=== PATIENT | male | born 1940 | race Caucasian/White ===

== ENCOUNTER → 2017-10-16 08:35 | Outpatient (POV) | payer MEDICARE, SELFPAY | PROVIDERS: Visit Provider Dermatology | DX: Z00.00 Encounter for general adult medical examination without abnormal findings (principal) ==

== ENCOUNTER → 2018-11-11 09:33 | Outpatient (CLI) | payer MEDICARE, SELFPAY ==
--- NOTE | 2018-11-11 09:36 | CA_ITS ---
PROCEDURE: 2-D M-mode and color Doppler study INDICATIONS FOR THE TEST: Chest pain COPD+ Heart Murmur Tobacco Smoking+ Palpitations Fatigue Syncope Edema Hypertension+Diabetes Mellitus Rheumatic Fever SOB+FELIX Obesity Hyperlipidemia+ Family History HD Additional History cabg,stents,aaa,pad,ruddy PATIENT INFORMATION HEIGHT: 66 WEIGHT:139 GENDER: Male B/P:161/70 2-D/M-MODE INTERPRETATION: 2-D MEASUREMENTS OBSERVED VALUES IN CMS Right Ventricular Dimension (RVDd) 1.7 Interventricular Septum (Thickness)(IVsd) 1.3 Left Ventricular Internal Dimensions(LVIDd) 4.4 Left Ventricular Posterior Wall (Thickness)(LVPWd) 1.1 Aortic Root 2.2 Aortic Cusp Separation 1.2 Left Atrial Dimensions (LAD) 3.9 2D 1. Left atrium is mildly enlarged, left ventricle is normal size, mild concentric left ventricular hypertrophy, visually estimated ejection fraction 55% with no regional wall motion abnormality. 2. The right atrium and right ventricle are normal size and contractility. 3. The aortic valve is thickened and calcified leaflet continue to display mobility. 4. The mitral and tricuspid valve leaflets are minimally thickened. 5. The pulmonic valve is poorly visualized. 6. No significant pericardial effusion noted. DOPPLER INTERROGATION: Doppler interrogation of the aortic, mitral and tricuspid valvular presence of mild mitral and moderate tricuspid regurgitation, tricuspid regurgitation jet velocity is inadequate for calculation of the right ventricular systolic pressure, grade 2 diastolic dysfunction seen without tissue Doppler evidence of raised left atrial pressure. CONCLUSION: 1. Mildly enlarged left atrium, normal left ventricular size, mild concentric left ventricular hypertrophy, visually estimated ejection fraction 55% with no regional wall motion abnormality, grade 2 diastolic dysfunction seen. 2. Thickened and calcified aortic valve without Doppler evidence of aortic stenosis aortic insufficiency. 3. Mild mitral and tricuspid regurgitation 4. No significant pericardial effusion noted.
== END ==
PROVIDERS: PCP Family Medicine; Visit Provider Internal Medicine
DX: F17.200 Nicotine dependence, unspecified, uncomplicated; I11.9 Hypertensive heart disease without heart failure; I25.10 Atherosclerotic heart disease of native coronary artery without angina pectoris; I65.23 Occlusion and stenosis of bilateral carotid arteries; I71.4 Abdominal aortic aneurysm, without rupture; I73.9 Peripheral vascular disease, unspecified; I77.72 Dissection of iliac artery; J43.8 Other emphysema; N18.2 Chronic kidney disease, stage 2 (mild); R00.1 Bradycardia, unspecified; E78.49 Other hyperlipidemia
CPT/HCPCS: 93306

== ENCOUNTER → 2020-03-02 08:58 | Outpatient (CLI) | payer MEDICARE, SELFPAY ==
--- NOTE | 2020-03-02 09:16 | MR_ITS ---
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 FINDINGS: No midline shift, mass effect, intracranial hemorrhage, or hydrocephalus is evident. There is mild generalized atrophy with nonspecific periventricular and subcortical T2 white matter hyperintensities consistent with ischemic gliotic change from microvascular disease. There are old bilateral lacunar infarctions of the basal ganglia. No evidence of acute infarction. No enhancing lesions are evident. There is soft tissue defect in the right temporal region which extends to the outer table of the skull and is somewhat more diffuse and less deep posterior to this area. The cranium itself has an unremarkable appearance. No evidence of any invasive process into the skull or subdural region. No pituitary mass. The optic chiasm, corpus callosum, and craniocervical junction have an unremarkable appearance. There is some increased T2 signal along the inferior aspect of the pituitary gland. This is of questionable clinical significance. No mastoid effusion or sinus air-fluid level. IMPRESSION: 1. No acute intracranial findings. 2. Soft tissue defect in the right frontal temporal area and right temporal region which extends to the external table of the skull without skull lesion. Dictated by: Tano Masterson MD 03/03/2020 13:28 Electronically signed by Tano Masterson MD in [place] 03/03/2020 13:28
[2020-03-02 09:19] LABS: Blood Urea Nitrogen 17 mg/dl (9-20); Estimated Glomerular Filt Rate 45 ml/min (>60); GFR (African American) 54 ML/MIN (>60)
== END ==
PROVIDERS: PCP Family Medicine; Visit Provider Family Medicine
DX: C76.0 Malignant neoplasm of head, face and neck (principal)
CPT/HCPCS: 36415; 70553; 82565; 84520

== ENCOUNTER → 2020-05-12 10:08 | Outpatient (CLI) | payer MEDICARE, SELFPAY ==
[2020-05-14 00:24] LABS: Covid-19 Nasal PCR Sendout Lex NOT DETECTED
== END ==
PROVIDERS: Visit Provider Family Medicine
DX: Z03.818 Encounter for observation for suspected exposure to other biological agents ruled out (principal)
CPT/HCPCS: U0004

== ENCOUNTER → 2022-03-23 08:52 | Outpatient (CLI) | payer MEDICARE, SELFPAY ==
[2022-03-22 18:16] LABS: MANUAL DIFFERENTIAL MANUAL DIFFERENTIAL (MANUAL DIFF)
[2022-03-22 18:21] LABS: Basophils # 0.1 K/mm3 (0-0.2); Basophils % 0.8 % (0.1-2.0); Eosinophils # 0.6 K/mm3 (0.0-0.4); Eosinophils % 7.2 % (0.1-12.0); Hematocrit 35.4 % (42.0-52.0); Hemoglobin 10.7 g/dL (14.1-18.0); Lymphocytes # 2.8 K/mm3 (0.7-4.5); Lymphocytes % 36.1 % (10-50); Mean Corpuscular HGB Conc 30.3 g/dL (31.8-35.4); Mean Corpuscular Hemoglobin 28.9 pg (27.0-31.2); Mean Corpuscular Volume 95.4 fl (80-94); Mean Platelet Volume 9.4 fl (7.4-10.4); Monocytes # 0.4 K/mm3 (0.1-1.0); Monocytes % 5.6 % (1.7-9.3); Neutrophils % 50.3 % (37.0-80.0); Platelet Count 198 K/mm3 (142-424); Red Blood Count 3.71 M/mm3 (4.60-6.20); Red Cell Distribution Width 17.1 % (11.5-17.5); White Blood Count 7.9 K/mm3 (4.8-10.8)
[2022-03-22 18:23] LABS: Chloride 102 mmol/L (98-107); Potassium 4.7 mmoL/L (3.5-5.1); Sodium 136 mmol/L (136-145)
[2022-03-22 18:25] LABS: Blood Urea Nitrogen 18 mg/dl (9-20); Estimated Glomerular Filt Rate 41 ml/min (>60); GFR (African American) 50 ML/MIN (>60)
[2022-03-22 18:26] LABS: Alanine Aminotransferase 9 U/L (12-78); Albumin Level 3.9 g/dl (3.5-5.0); Albumin/Globulin Ratio 1.3 (1.1-1.8); Alkaline Phosphatase 120 U/L (38-126); Anion Gap 9.7 mEq/L (5-15); Aspartate Amino Transferase 20 U/L (17-59); Bilirubin,Total 0.4 mg/dl (0.2-1.3); Carbon Dioxide 29 mmol/L (22.0-30.0); Globulin 2.9 g/dL (1.3-3.2); Glucose 98 mg/dl (74-100); Total Protein,Serum 6.8 g/dl (6.3-8.2)
[2022-03-22 20:24] LABS: Anisocytosis 2+; Eosinophils % 6 % (0-3); Hypochromasia 2+; Lymphocytes % 35 % (10-50); Monocytes % 2 % (2-9); Neutrophils % 55 % (42-76); Platelet Estimate Normal; Poikilocytosis 1+; Total Cells Counted 100
== END ==
PROVIDERS: PCP Family Medicine; Visit Provider Family Medicine
DX: Z86.2 Personal history of diseases of the blood and blood-forming organs and certain disorders involving the immune mechanism (principal); I25.10 Atherosclerotic heart disease of native coronary artery without angina pectoris
CPT/HCPCS: 80053; 85007; 85014; 85018; 85048; 85049

== ENCOUNTER → 2022-06-22 08:17 | Outpatient (CLI) | payer MEDICARE, SELFPAY ==
[2022-06-21 19:47] LABS: Alanine Aminotransferase 8 U/L (12-78); Albumin Level 3.8 g/dl (3.5-5.0); Albumin/Globulin Ratio 1.3 (1.1-1.8); Alkaline Phosphatase 131 U/L (38-126); Anion Gap 16.8 mEq/L (5-15); Aspartate Amino Transferase 18 U/L (17-59); Bilirubin,Total 0.2 mg/dl (0.2-1.3); Blood Urea Nitrogen 21 mg/dl (9-20); Calcium 8.5 mg/dl (8.4-10.2); Carbon Dioxide 28 mmol/L (22.0-30.0); Chloride 99 mmol/L (98-107); Estimated Glomerular Filt Rate 41 ml/min (>60); GFR (African American) 50 ML/MIN (>60); Globulin 2.9 g/dL (1.3-3.2); Glucose 84 mg/dl (74-100); Potassium 4.8 mmoL/L (3.5-5.1); Sodium 139 mmol/L (136-145); Total Protein,Serum 6.7 g/dl (6.3-8.2)
[2022-06-21 20:17] LABS: Thyroid Stimulating Hormone 2.55 uIU/mL (0.465-4.68)
== END ==
PROVIDERS: PCP Family Medicine; Visit Provider Family Medicine
DX: R06.00 Dyspnea, unspecified (principal); I11.9 Hypertensive heart disease without heart failure
CPT/HCPCS: 80053; 84443

== ENCOUNTER → 2022-06-24 08:13 | Outpatient (CLI) | payer MEDICARE, SELFPAY ==
--- NOTE | 2022-06-24 | CA_ITS ---
APPROVED REPORT EXAM: Comprehensive 2D, Doppler, and color-flow Echocardiogram Camp Manager: Faith Martin CRT Ht: 5 ft 6 in Wt: 138lbs BSA: 1.71 BP: 130/62 mmHg Indications: COPD, Shortness of Breath, Hyperlipidemia, Hypertension/HDD, CABG x5, stents x 2, smoker 2D Dimensions LVOT 1.78 cm (M/F) 1.5-2.5 LA Volume 36.40 mL LA Volume Index 21.30 mL/m2 (M/F) 16-34 M-Mode Dimensions RVDd 2.67 cm (0.9-2.6) LA Diam 3.59 cm (1.9-4.0) LVDd 4.27 cm (3.5-5.7) Ao Diam 3.86 cm (2.0-3.7) LVDs 3.13 cm (3.5-5.7) IVSd 0.99 cm (0.6-1.1) PWd 0.87 cm (0.6-1.1) EF (Teich) 52.50% FS 26.70% EDV (Teich) 81.70 mL TAPSE 1.60 (<1.7) ESV (Teich) 38.80 mL LV Diastology E Decel Time 190.00 (160-240 msec) E/A Ratio 0.88 MED E' 6.60 (< 7 cm/sec) MED A' 10.80 cm/s E'/MED E' Ratio 13.02 (>14) LAT E' 9.80 (<10 cm/sec) LAT A' 10.20 cm/s E/LAT E' Ratio 8.77 (>14) Aortic Valve LVOT Max 171.00 (70-110 cm/s) LVOT VTI 37.21 cm AoV Peak Julio Cesar. 199.00 (50-130 cm/s) AI PHT 451.00 ms AO Peak GR. 16.00 mmHg AO Mean GR. 8.20 (<5 mmHg) AO VTI 44.63 (18-25 cm) TIERRA (VTI) 2.07 (2.5-4.5 cm2) Mitral Valve MV A Velocity 97.00 (40-130 cm/s) E/A Ratio 0.88 MV Decel. Time 190.00 (160-240 ms) Pulmonary Valve PV Peak Velocity 141.00 (50-150 cm/s) Tricuspid Valve TR P. Velocity 203.00 cm/s RAP Estimate 10.00 mmHg RVSP 26.50 mmHg Left Ventricle Left atrium is mildly enlarged, left ventricle is normal size, mild concentric left ventricular hypertrophy, estimated ejection fraction 55% with no regional wall motion abnormality, grade 1 diastolic dysfunction seen without tissue Doppler evidence of raise left atrial pressure. Right Ventricle Right atrium and right ventricle are normal size and contractility. Aortic Valve Aortic valve is minimally thickened and fibrosed there is no aortic stenosis, there is trace aortic insufficiency. Mitral Valve Mitral valve grossly normal, there is trace mitral regurgitation. Tricuspid Valve Tricuspid valve grossly normal, there is trace tricuspid regurgitation, tricuspid regurgitation request is inadequate for calculation of the right ventricular systolic pressure. Pulmonic Valve Pulmonic valve is poorly visualized. Great Vessels Aortic root is normal size. Inferior vena cava is poorly visualized. Pericardium No significant pericardial effusion noted. Conclusion 1. Mildly enlarged left atrium, normal left ventricular size, mild concentric left ventricular hypertrophy, estimated ejection fraction 55% with no regional wall motion abnormality, grade 1 diastolic dysfunction seen without tissue Doppler evidence of raise left atrial pressure. 2. Trace aortic, mitral and tricuspid regurgitation. 3. No significant pericardial effusion noted. 4. Inferior vena cava is poorly visualized Electronically signed by : Andres Eubanks MD 06/25/2022 06:26:48
== END ==
PROVIDERS: PCP Family Medicine; Visit Provider Nurse Practitioner Family
DX: R06.02 Shortness of breath (principal)
CPT/HCPCS: 93306

== ENCOUNTER → 2022-10-08 11:20 | Outpatient (CLI) | payer MEDICARE, SELFPAY ==
[2022-10-08 19:04] LABS: Basophils % 0.3 % (0.1-2.0); Eosinophils # 0.5 K/mm3 (0.0-0.4); Eosinophils % 6.3 % (0.1-12.0); Hematocrit 33.5 % (42.0-52.0); Hemoglobin 10.4 g/dL (14.1-18.0); Lymphocytes # 2.7 K/mm3 (0.7-4.5); Lymphocytes % 35.1 % (10-50); Mean Corpuscular HGB Conc 31.1 g/dL (31.8-35.4); Mean Corpuscular Hemoglobin 28.8 pg (27.0-31.2); Mean Corpuscular Volume 92.6 fl (80-94); Mean Platelet Volume 9.7 fl (7.4-10.4); Monocytes # 0.4 K/mm3 (0.1-1.0); Monocytes % 4.5 % (1.7-9.3); Neutrophils # 4.1 K/mm3 (1.8-7.8); Neutrophils % 53.8 % (37.0-80.0); Platelet Count 198 K/mm3 (142-424); Red Blood Count 3.62 M/mm3 (4.60-6.20); Red Cell Distribution Width 17.1 % (11.5-17.5); White Blood Count 7.7 K/mm3 (4.8-10.8)
[2022-10-08 20:36] LABS: Vitamin B12 348 pg/mL (239-931)
== END ==
PROVIDERS: PCP Family Medicine; Visit Provider Family Medicine
DX: J43.8 Other emphysema (principal); Z86.2 Personal history of diseases of the blood and blood-forming organs and certain disorders involving the immune mechanism
CPT/HCPCS: 82607; 85025

== ENCOUNTER → 2022-12-16 08:52 | Outpatient (CLI) | payer MEDICARE, SELFPAY ==
--- NOTE | 2022-12-16 08:52 | US_ITS ---
FINAL REPORT TECHNIQUE: Ultrasound images of the kidneys were obtained. CLINICAL HISTORY: LEFT KID PAIN FINDINGS: US RETROPERITONEAL The right kidney measures 9.2 cm in length. It is normal in echogenicity. There is no hydronephrosis. The left kidney measures 9.2 cm in length. It is normal in echogenicity. There is no hydronephrosis. The spleen measures 9.4 cm in length and is unremarkable. IMPRESSION: Unremarkable exam. Reviewed, Interpreted and Dictated by Kareem Keating MD Transcribed by Farhana Villanueva Authenticated and . [facility]
== END ==
PROVIDERS: PCP Family Medicine; Visit Provider Family Medicine
DX: N23 Unspecified renal colic (principal)
CPT/HCPCS: 76770

== ENCOUNTER → 2023-01-03 10:45 | Outpatient (CLI) | payer MEDICARE, SELFPAY ==
[2023-01-03 18:24] LABS: Basophils % 0.2 % (0.1-2.0); Chloride 104 mmol/L (98-107); Eosinophils # 0.4 K/mm3 (0.0-0.4); Eosinophils % 4.9 % (0.1-12.0); Hematocrit 33.8 % (42.0-52.0); Hemoglobin 10.6 g/dL (14.1-18.0); Lymphocytes # 2.5 K/mm3 (0.7-4.5); Lymphocytes % 35.1 % (10-50); Mean Corpuscular HGB Conc 31.2 g/dL (31.8-35.4); Mean Corpuscular Volume 92.7 fl (80-94); Monocytes # 0.4 K/mm3 (0.1-1.0); Monocytes % 5.6 % (1.7-9.3); Neutrophils # 3.9 K/mm3 (1.8-7.8); Neutrophils % 54.2 % (37.0-80.0); Platelet Count 172 K/mm3 (142-424); Potassium 4.6 mmoL/L (3.5-5.1); Red Blood Count 3.65 M/mm3 (4.60-6.20); Red Cell Distribution Width 16.8 % (11.5-17.5); Sodium 136 mmol/L (136-145); White Blood Count 7.2 K/mm3 (4.8-10.8)
[2023-01-03 18:26] LABS: Alanine Aminotransferase 10 U/L (12-78); Aspartate Amino Transferase 18 U/L (17-59); Blood Urea Nitrogen 21 mg/dl (9-20); Estimated Glomerular Filt Rate 45 ml/min (>60); GFR (African American) 54 ML/MIN (>60)
[2023-01-03 18:27] LABS: Albumin Level 3.8 g/dl (3.5-5.0); Albumin/Globulin Ratio 1.3 (1.1-1.8); Alkaline Phosphatase 111 U/L (38-126); Anion Gap 11.6 mEq/L (5-15); Bilirubin,Total 0.4 mg/dl (0.2-1.3); Calcium 8.5 mg/dl (8.4-10.2); Carbon Dioxide 25 mmol/L (22.0-30.0); Globulin 2.9 g/dL (1.3-3.2); Glucose 90 mg/dl (74-100); Total Protein,Serum 6.7 g/dl (6.3-8.2)
== END ==
PROVIDERS: PCP Family Medicine; Visit Provider Family Medicine
DX: D51.8 Other vitamin B12 deficiency anemias (principal); C22.9 Malignant neoplasm of liver, not specified as primary or secondary
CPT/HCPCS: 80053; 85025

== ENCOUNTER → 2023-04-08 23:31 | Outpatient (CLI) | payer MEDICARE, SELFPAY ==
[2023-04-08 18:53] LABS: Basophils % 0.2 % (0.1-2.0); Eosinophils # 0.5 K/mm3 (0.0-0.4); Eosinophils % 6.8 % (0.1-12.0); Hematocrit 36.1 % (42.0-52.0); Hemoglobin 11.1 g/dL (14.1-18.0); Lymphocytes # 3.3 K/mm3 (0.7-4.5); Mean Corpuscular HGB Conc 30.7 g/dL (31.8-35.4); Mean Corpuscular Hemoglobin 28.4 pg (27.0-31.2); Mean Corpuscular Volume 92.4 fl (80-94); Mean Platelet Volume 9.3 fl (7.4-10.4); Monocytes # 0.4 K/mm3 (0.1-1.0); Monocytes % 5.8 % (1.7-9.3); Neutrophils # 3.4 K/mm3 (1.8-7.8); Neutrophils % 44.2 % (37.0-80.0); Platelet Count 186 K/mm3 (142-424); White Blood Count 7.7 K/mm3 (4.8-10.8)
[2023-04-08 19:52] LABS: Vitamin B12 986 pg/mL (239-931)
== END ==
PROVIDERS: PCP Family Medicine; Visit Provider Family Medicine
DX: D51.8 Other vitamin B12 deficiency anemias (principal); Z86.2 Personal history of diseases of the blood and blood-forming organs and certain disorders involving the immune mechanism
CPT/HCPCS: 82607; 85025

== ENCOUNTER → 2023-07-08 10:55 | Outpatient (CLI) | payer MEDICARE, SELFPAY ==
[2023-07-08 18:02] LABS: Alanine Aminotransferase 12 U/L (12-78); Albumin Level 3.9 g/dl (3.5-5.0); Albumin/Globulin Ratio 1.3 (1.1-1.8); Alkaline Phosphatase 117 U/L (38-126); Anion Gap 12.7 mEq/L (5-15); Aspartate Amino Transferase 45 U/L (17-59); Bilirubin,Total 0.6 mg/dl (0.2-1.3); Blood Urea Nitrogen 17 mg/dl (9-20); Calcium 8.8 mg/dl (8.4-10.2); Carbon Dioxide 26 mmol/L (22.0-30.0); Chloride 101 mmol/L (98-107); Estimated Glomerular Filt Rate 48 ml/min (>60); GFR (African American) 58 ML/MIN (>60); Globulin 3.1 g/dL (1.3-3.2); Glucose 101 mg/dl (74-100); Potassium 4.7 mmoL/L (3.5-5.1); Sodium 135 mmol/L (136-145)
[2023-07-08 18:52] LABS: Vitamin B12 > 1000 pg/mL (239-931)
== END ==
PROVIDERS: PCP Family Medicine; Visit Provider Family Medicine
DX: D51.8 Other vitamin B12 deficiency anemias (principal); N28.9 Disorder of kidney and ureter, unspecified
CPT/HCPCS: 80053; 82607

== ENCOUNTER 2023-10-14 19:37 | Outpatient (CLI) | payer MEDICARE, SELFPAY ==
[2023-10-14 18:36] LABS: Basophils % 0.3 % (0.1-2.0); Eosinophils # 0.4 K/mm3 (0.0-0.4); Eosinophils % 5.5 % (0.1-12.0); Hematocrit 33.5 % (42.0-52.0); Hemoglobin 10.6 g/dL (14.1-18.0); Lymphocytes # 3.2 K/mm3 (0.7-4.5); Lymphocytes % 42.9 % (10-50); Mean Corpuscular HGB Conc 31.7 g/dL (31.8-35.4); Mean Corpuscular Hemoglobin 29.5 pg (27.0-31.2); Mean Corpuscular Volume 92.9 fl (80-94); Monocytes # 0.4 K/mm3 (0.1-1.0); Monocytes % 4.8 % (1.7-9.3); Neutrophils # 3.4 K/mm3 (1.8-7.8); Neutrophils % 46.4 % (37.0-80.0); Platelet Count 156 K/mm3 (142-424); Red Blood Count 3.61 M/mm3 (4.60-6.20); Red Cell Distribution Width 16.9 % (11.5-17.5); White Blood Count 7.4 K/mm3 (4.8-10.8)
[2023-10-14 18:42] LABS: Chloride 101 mmol/L (98-107); Potassium 4.8 mmoL/L (3.5-5.1); Sodium 136 mmol/L (136-145)
[2023-10-14 18:45] LABS: Alanine Aminotransferase 12 U/L (12-78); Albumin/Globulin Ratio 1.3 (1.1-1.8); Alkaline Phosphatase 117 U/L (38-126); Anion Gap 10.8 mEq/L (5-15); Aspartate Amino Transferase 21 U/L (17-59); Bilirubin,Total 0.6 mg/dl (0.2-1.3); Blood Urea Nitrogen 21 mg/dl (9-20); Calcium 8.9 mg/dl (8.4-10.2); Carbon Dioxide 29 mmol/L (22.0-30.0); Estimated Glomerular Filt Rate 38 ml/min (>60); GFR (African American) 47 ML/MIN (>60); Glucose 104 mg/dl (74-100)
== END 2023-10-14 23:59 ==
LOC: LAB.DROPOF 19:38
PROVIDERS: PCP Family Medicine; Visit Provider Family Medicine
DX: N28.9 Disorder of kidney and ureter, unspecified (principal); D64.9 Anemia, unspecified
CPT/HCPCS: 80053; 85025

== ENCOUNTER 2024-01-07 09:42 | Outpatient (CLI) | payer MEDICARE, SELFPAY ==
--- NOTE | 2024-01-07 09:42 | CA_ITS ---
APPROVED REPORT EXAM: Comprehensive 2D, Doppler, and color-flow Echocardiogram Waiter/Waitress Head: CHARU Franco, RVS Ht: 5 ft 6 in Wt: 131lbs BSA: 1.67 BP: 131/56 mmHg Indications: COPD, Murmur, CAD, CABG, , smoker, AI, MR 2D Dimensions Left Atrium 3.45 cm LA Volume 50.80 mL LA Volume Index 29.70 mL/m2 (M/F) 16-34 M-Mode Dimensions RVDd 2.35 cm (0.9-2.6) LA Diam 3.51 cm (1.9-4.0) LVDd 5.28 cm (3.5-5.7) LVDs 3.65 cm (3.5-5.7) IVSd 1.03 cm (0.6-1.1) PWd 0.71 cm (0.6-1.1) EF (Teich) 58.00% EPSs 0.55 cm FS 30.90% EDV (Teich) 134.20 mL TAPSE 1.58 (<1.7) ESV (Teich) 56.30 mL LV Diastology E Decel Time 213 (160-240 msec) E/A Ratio 1.09 MED A' 13.00 cm/s LAT A' 13.30 cm/s Aortic Valve TIERRA Index 1.10 cm2/m2 AoV Peak Julio Cesar. 221.0 (50-130 cm/s) AI PHT 594.00 ms AO Peak GR. 19.50 mmHg AO Mean GR. 10.40 (<5 mmHg) AO VTI 60.3 (18-25 cm) TIERRA (VTI) 1.88 (2.5-4.5 cm2) Mitral Valve MV A Velocity 108.0 (40-130 cm/s) E/A Ratio 1.09 MV Mean Gr. 1.80 (<2mmHg) Pulmonary Valve PV Peak Velocity 146.0 (50-150 cm/s) OH End VMAX 212.0 cm/s Tricuspid Valve TR P. Velocity 255.00 cm/s RAP Estimate 10.00 mmHg RVSP 36.10 mmHg Left Ventricle The left ventricle is normal size. The left ventricular systolic function is normal. The left ventricular ejection fraction is within the normal range. There is normal left ventricular wall thickness. There is normal LV segmental wall motion. The left ventricular diastolic function is normal. LVEF is 60%. Right Ventricle Right ventricle is mildly dilated. The right ventricular systolic function is normal. Atria Left atrium is mildly dilated. Right atrium is mildly dilated. There is no Doppler evidence of interatrial shunt. Aortic Valve The aortic valve is mildly thickened. Mild aortic stenosis is present. TIERRA by continuity equation is 2.0 cm2. Peak velocity 2.5 m/s. Mean AV gradient is 10 mmHg. Max AV gradient is 20 mmHg. Mild aortic regurgitation is present. Mitral Valve The mitral valve leaflets are mildly thickened. No evidence of mitral valve stenosis. Mild mitral regurgitation. Tricuspid Valve The tricuspid valve leaflets are thin and pliable. Mild tricuspid regurgitation. RVSP is 25-30 mmHg. Pulmonic Valve The pulmonary valve is normal in structure. Mild pulmonic regurgitation. Great Vessels The aortic root is normal in size. The ascending aorta is not well visualized. IVC is normal in size and collapses >50% with inspiration. Pericardium There is no pericardial effusion. Conclusion Normal biventricular systolic function. Mild RV dilation. Biatrial dilation. Mild (TIERRA by continuity equation is 2.0 cm2. Peak velocity 2.5 m/s. Mean AV gradient is 10 mmHg. Max AV gradient is 20 mmHg). Mild AI, mild MR, mild TR, mild OH. RVSP is 25-30 mmHg. Electronically signed by : Polina Prince MD 01/11/2024 18:07:10
== END 2024-01-07 23:59 | disposition home or self-care (01) ==
LOC: RT 09:42
PROVIDERS: PCP Family Medicine; Visit Provider Nurse Practitioner
DX: R01.1 Cardiac murmur, unspecified (principal); R94.31 Abnormal electrocardiogram [ECG] [EKG]
CPT/HCPCS: 93306

== ENCOUNTER 2024-02-17 15:50 | Outpatient (CLI) | payer MEDICARE, SELFPAY ==
[2024-02-17 18:13] LABS: Basophils % 0.4 % (0.1-2.0); Eosinophils # 0.5 K/mm3 (0.0-0.4); Eosinophils % 6.3 % (0.1-12.0); Hematocrit 31.9 % (42.0-52.0); Hemoglobin 9.9 g/dL (14.1-18.0); Lymphocytes # 2.8 K/mm3 (0.7-4.5); Lymphocytes % 39.8 % (10-50); Mean Corpuscular HGB Conc 30.9 g/dL (31.8-35.4); Mean Corpuscular Hemoglobin 29.9 pg (27.0-31.2); Mean Corpuscular Volume 96.8 fl (80-94); Mean Platelet Volume 9.4 fl (7.4-10.4); Monocytes # 0.4 K/mm3 (0.1-1.0); Monocytes % 4.9 % (1.7-9.3); Neutrophils # 3.5 K/mm3 (1.8-7.8); Neutrophils % 48.7 % (37.0-80.0); Platelet Count 170 K/mm3 (142-424); Red Cell Distribution Width 17.3 % (11.5-17.5); White Blood Count 7.1 K/mm3 (4.8-10.8)
[2024-02-17 18:39] LABS: Alanine Aminotransferase 10 U/L (12-78); Albumin Level 3.8 g/dl (3.5-5.0); Albumin/Globulin Ratio 1.3 (1.1-1.8); Alkaline Phosphatase 99 U/L (38-126); Anion Gap 13.6 mEq/L (5-15); Aspartate Amino Transferase 17 U/L (17-59); Bilirubin,Total 0.5 mg/dl (0.2-1.3); Blood Urea Nitrogen 25 mg/dl (9-20); Calcium 8.8 mg/dl (8.4-10.2); Carbon Dioxide 27 mmol/L (22.0-30.0); Chloride 100 mmol/L (98-107); Estimated Glomerular Filt Rate 30 ml/min (>60); GFR (African American) 37 ML/MIN (>60); Glucose 97 mg/dl (74-100); Potassium 4.6 mmoL/L (3.5-5.1); Sodium 136 mmol/L (136-145); Total Protein,Serum 6.8 g/dl (6.3-8.2)
== END 2024-02-17 23:59 | disposition home or self-care (01) ==
LOC: LAB.DROPOF 02-18 15:51
PROVIDERS: PCP Family Medicine; Visit Provider Family Medicine
DX: N28.9 Disorder of kidney and ureter, unspecified (principal); D64.9 Anemia, unspecified
CPT/HCPCS: 80053; 85025

== ENCOUNTER 2024-02-19 09:00 | Outpatient (CLI) | payer MEDICARE, SELFPAY | END 2024-02-19 23:59 | disposition home or self-care (01) | LOC: LAB.DROPOF 02-20 07:38 | PROVIDERS: PCP Family Medicine; Visit Provider Family Medicine | DX: D64.9 Anemia, unspecified (principal); N28.9 Disorder of kidney and ureter, unspecified | CPT/HCPCS: 87177 ==

== ENCOUNTER 2024-05-18 14:41 | Outpatient (CLI) | payer MEDICARE, SELFPAY ==
[2024-05-18 18:58] LABS: Basophils % 0.3 % (0.1-2.0); Eosinophils # 0.4 K/mm3 (0.0-0.4); Eosinophils % 6.2 % (0.1-12.0); Hematocrit 30.9 % (42.0-52.0); Hemoglobin 9.3 g/dL (14.1-18.0); Lymphocytes # 2.5 K/mm3 (0.7-4.5); Lymphocytes % 39.9 % (10-50); Mean Corpuscular HGB Conc 30.2 g/dL (31.8-35.4); Mean Corpuscular Hemoglobin 29.6 pg (27.0-31.2); Mean Corpuscular Volume 98.2 fl (80-94); Mean Platelet Volume 10.2 fl (7.4-10.4); Monocytes # 0.4 K/mm3 (0.1-1.0); Monocytes % 6.1 % (1.7-9.3); Neutrophils % 47.4 % (37.0-80.0); Platelet Count 170 K/mm3 (142-424); Red Blood Count 3.14 M/mm3 (4.60-6.20); Red Cell Distribution Width 17.6 % (11.5-17.5); White Blood Count 6.4 K/mm3 (4.8-10.8)
[2024-05-18 19:31] LABS: Alanine Aminotransferase 9 U/L (12-78); Albumin Level 3.7 g/dl (3.5-5.0); Albumin/Globulin Ratio 1.2 (1.1-1.8); Alkaline Phosphatase 97 U/L (38-126); Anion Gap 8.9 mEq/L (5-15); Aspartate Amino Transferase 18 U/L (17-59); Bilirubin,Total 0.5 mg/dl (0.2-1.3); Blood Urea Nitrogen 23 mg/dl (9-20); Calcium 8.7 mg/dl (8.4-10.2); Carbon Dioxide 25 mmol/L (22.0-30.0); Chloride 106 mmol/L (98-107); Estimated Glomerular Filt Rate 36 ml/min (>60); GFR (African American) 44 ML/MIN (>60); Globulin 3.2 g/dL (1.3-3.2); Glucose 94 mg/dl (74-100); Potassium 4.9 mmoL/L (3.5-5.1); Sodium 135 mmol/L (136-145); Total Protein,Serum 6.9 g/dl (6.3-8.2)
== END 2024-05-18 23:59 | disposition home or self-care (01) ==
LOC: LAB.DROPOF 05-19 14:41
PROVIDERS: PCP Family Medicine; Visit Provider Family Medicine
DX: D64.9 Anemia, unspecified (principal); N28.9 Disorder of kidney and ureter, unspecified
CPT/HCPCS: 80053; 85025

== ENCOUNTER 2024-11-23 12:16 | Outpatient (CLI) | payer MEDICARE, SELFPAY ==
[2024-11-23 19:51] LABS: Basophils % 0.2 % (0.1-2.0); Eosinophils # 0.4 K/mm3 (0.0-0.4); Eosinophils % 6.5 % (0.1-12.0); Hematocrit 28.1 % (42.0-52.0); Hemoglobin 8.9 g/dL (14.1-18.0); Lymphocytes # 2.6 K/mm3 (0.7-4.5); Lymphocytes % 40.8 % (10-50); Mean Corpuscular HGB Conc 31.7 g/dL (31.8-35.4); Mean Corpuscular Hemoglobin 28.8 pg (27.0-31.2); Mean Corpuscular Volume 90.9 fl (80-94); Mean Platelet Volume 12.5 fl (7.4-10.4); Monocytes # 0.4 K/mm3 (0.1-1.0); Monocytes % 6.8 % (1.7-9.3); Neutrophils # 2.9 K/mm3 (1.8-7.8); Neutrophils % 45.4 % (37.0-80.0); Platelet Count 161 K/mm3 (142-424); Red Blood Count 3.09 M/mm3 (4.60-6.20); Red Cell Distribution Width 15.1 % (11.5-17.5); White Blood Count 6.3 K/mm3 (4.8-10.8)
[2024-11-23 21:22] LABS: Chloride 101 mmol/L (98-107)
[2024-11-23 21:23] LABS: Albumin Level 4.1 g/dl (3.5-5.0); Potassium 4.8 mmoL/L (3.5-5.1); Sodium 132 mmol/L (136-145)
[2024-11-23 21:25] LABS: Blood Urea Nitrogen 31 mg/dl (9-20); Estimated Glomerular Filt Rate 23 ml/min (>60); GFR (African American) 27 ML/MIN (>60)
[2024-11-23 21:26] LABS: Alanine Aminotransferase 12 U/L (12-78); Albumin/Globulin Ratio 1.6 (1.1-1.8); Alkaline Phosphatase 99 U/L (38-126); Anion Gap 10.8 mEq/L (5-15); Aspartate Amino Transferase 16 U/L (17-59); Bilirubin,Total 0.4 mg/dl (0.2-1.3); Calcium 8.6 mg/dl (8.4-10.2); Carbon Dioxide 25 mmol/L (22.0-30.0); Globulin 2.6 g/dL (1.3-3.2); Glucose 92 mg/dl (74-100); Total Protein,Serum 6.7 g/dl (6.3-8.2)
[2024-11-24 12:44] LABS: Iron 87 ug/dL (49-181)
[2024-11-24 12:53] LABS: Total Iron Binding Capacity 280 ug/dL (261-462)
[2024-11-24 14:35] LABS: Vitamin B12 626 pg/mL (239-931)
== END 2024-11-23 23:59 | disposition home or self-care (01) ==
LOC: LAB.DROPOF 11-25 09:57
PROVIDERS: PCP Family Medicine; Visit Provider Family Medicine
DX: N28.9 Disorder of kidney and ureter, unspecified (principal); Z86.2 Personal history of diseases of the blood and blood-forming organs and certain disorders involving the immune mechanism; D64.9 Anemia, unspecified
CPT/HCPCS: 80053; 82607; 83540; 83550; 85025

== ENCOUNTER 2024-12-02 11:04 | Outpatient (CLI) | payer MEDICARE, SELFPAY ==
[2024-12-02 12:05] LABS: Lactate Dehydrogenase 169 U/L (313-618)
[2024-12-02 12:33] LABS: Thyroid Stimulating Hormone 2.63 uIU/mL (0.465-4.68)
[2024-12-02 12:45] LABS: Ferritin 161 ng/ml (17.9-464)
[2024-12-03 10:49] LABS: Haptoglobin 159 mg/dL (38-329)
[2024-12-03 15:18] LABS: Free Kappa Lt Chains 67.4 mg/L (3.3-19.4); Free Lambda Lt Chains 69.5 mg/L (5.7-26.3)
[2024-12-03 16:25] LABS: Albumin 3.4 g/dL (2.9-4.4); Alpha-1-Globulin 0.3 g/dL (0.0-0.4); Alpha-2-Globulin 0.8 g/dL (0.4-1.0); Gamma Globulin 1.5 g/dL (0.4-1.8); Protein, Total 6.9 g/dL (6.0-8.5)
[2024-12-06 12:12] LABS: Immunoglobulin A, Qn 231 mg/dL (61-437); Immunoglobulin G, Qn 1435 mg/dL (603-1613); Immunoglobulin M, Qn 86 mg/dL (15-143)
[2024-12-09 15:33] LABS: PDF SCANNED IMAGE
== END 2024-12-02 23:59 | disposition home or self-care (01) ==
LOC: LAB 11:05
PROVIDERS: PCP Family Medicine; Visit Provider Internal Medicine Medical Oncology
DX: D64.9 Anemia, unspecified (principal)
CPT/HCPCS: 36415; 82728; 82746; 82784; 83010; 83615; 83883; 84155; 84165; 84443; 86334; 86880

== ENCOUNTER 2024-12-29 09:18 | Outpatient (CLI) | payer MEDICARE, SELFPAY ==
[2024-12-30 15:11] LABS: Free Kappa Lt Chains 62.1 mg/L (3.3-19.4); Free Lambda Lt Chains 65.1 mg/L (5.7-26.3)
[2024-12-31 16:20] LABS: Immunoglobulin A, Qn 231 mg/dL (61-437); Immunoglobulin G, Qn 1419 mg/dL (603-1613); Immunoglobulin M, Qn 80 mg/dL (15-143)
== END 2024-12-29 23:59 | disposition home or self-care (01) ==
LOC: LAB 09:19
PROVIDERS: PCP Family Medicine; Visit Provider Internal Medicine Medical Oncology
DX: D64.9 Anemia, unspecified (principal); C22.9 Malignant neoplasm of liver, not specified as primary or secondary
CPT/HCPCS: 36415; 82784; 83883; 86334

== ENCOUNTER 2024-12-31 11:00 | Outpatient (CLI) | payer MEDICARE, SELFPAY ==
[2025-01-04 16:42] LABS: Albumin, U 14.3 % (.); Alpha-1-Globulin, U 2.6 % (.); Alpha-2-Globulin, U 22.5 % (.); Beta Globulin, U 26.6 % (.); Gamma Globulin, U 33.9 % (.); M-Spike, % 4.9 % (Not Observed); M-Spike, mg/24 hr 8.3 mg/24 hr (Not Observed); Prot,24hr calculated 169 mg/24 hr (30-150); Protein,Total,Urine 14.7 mg/dL (Not Estab.)
[2025-01-05 15:02] LABS: PDF: SCANNED IMAGE
== END 2024-12-31 23:59 | disposition home or self-care (01) ==
PROVIDERS: PCP Family Medicine; Visit Provider Internal Medicine Medical Oncology
DX: C22.9 Malignant neoplasm of liver, not specified as primary or secondary (principal); D64.9 Anemia, unspecified
CPT/HCPCS: 84156; 84166

== ENCOUNTER 2025-04-14 11:52 | Outpatient (CLI) | payer MEDICARE, SELFPAY ==
--- OUTSIDE RECORDS SUMMARY | 2025-04-14 11:56 | XMS_ITS | Clinical Summary ---
Author Organization [facility] Address [facility] [address] [place], [place] [address] Phone Care Team Providers Care Metal Handler Name Role Phone Gilberto Reynolds MD Primary Care Provider [phone] Allergies No known active allergies Medications amLODIPine-atorv astatatin (CADUET) 5-20 mg Oral Tablet Take 1 Tab by mouth daily. Active olmesartan-hydro chlorothiazide (BENICAR HCT) 40-12.5 mg per tablet Take 1 Tab by mouth daily. 90 Tab 3 2 Active Additional Information Patient not taking.Reason: Advised by Physician, Reported on 12/15/2024 carvedilol (COREG) 6.25 mg tablet Take 6.25 mg by mouth 2 times daily (with meals). Active clopidogrel (PLAVIX) 75 mg Oral Tablet Take 1 Tab by mouth daily. DO NOT RESTART UNTIL September 26, 2015 5 Active sucralfate (CARAFATE) 1 gram Oral Tablet Take 1 Tab by mouth 4 times daily. 2 8 Active tamsulosin (FLOMAX) 0.4 mg Oral Capsule Take 1 Cap by mouth daily. 3 8 Active allopurinol (ZYLOPRIM) 300 mg Oral Tablet Take 1 Tab by mouth daily. 2 9 Active olmesartan (BENICAR) 20 mg Oral Tablet Take 1 Tab by mouth daily. 3 9 Active ferrous sulfate 325 mg (65 mg iron) Oral Tablet Take 1 Tab by mouth 2 times daily. 5 8 Active albuterol (PROVENTIL) 2.5 mg /3 mL (0.083 %) Inhl Solution for Nebulization 0 Active pantoprazole (PROTONIX) 40 mg Oral Tablet, Delayed Release (E.C.) Take 1 Tablet by mouth before breakfast. 30 Tablet 3 2 Active cyanocobalamin 1,000 mcg Oral Tablet TAKE ONE (1) TABLET BY MOUTH EVERY DAY FOR DEFICIENCY 5 Active Active Problems Problem Noted Date Diagnosed Date Drop in hemoglobin 11/01/2021 Overview (11/01/2021): Added automatically from request for surgery [id number] Gastroesophageal reflux disease 11/01/2021 Overview (11/01/2021): Added automatically from request for surgery [id number] Personal history of colonic polyps 11/01/2021 Overview (11/01/2021): Added automatically from request for surgery [id number] History of duodenal ulcer 11/01/2021 Overview (11/01/2021): Added automatically from request for surgery [id number] Carotid stenosis, asymptomatic, bilateral 2018 Abdominal aortic aneurysm (AAA) without rupture 10/29/2017 Carotid artery disease without cerebral infarcti on 09/16/2016 Melena 09/11/2015 Essential hypertension, benign 02/03/2014 Tobacco abuse disorder 06/09/2013 CAD (coronary artery disease) 09/23/2011 HLD (hyperlipidemia) 09/23/2011 HTN (hypertension) 09/23/2011 Cerebral infarction 09/23/2011 Bilateral carotid artery stenosis Overview (02/28/2014): S/p RCEA 02/02/14 BLD Acute blood loss anemia Hematochezia ASHD (arteriosclerotic heart disease) Cigarette smoker Immunizations Immunization Administration Dates Next Due Influenza Vaccine, Unspecified Formulation 06/15 Surgical History Surgery Date Site/Laterality Comments CORONARY ANGIOPLASTY SKIN CANCER EXCISION CORONARY ARTERY BYPASS GRAFT VASCULAR SURGERY left carotid artery endarterectomyu NOSE SURGERY skin cancer removed CAROTID ENDARTERECTOMY 02/02/2014 Right RIGHT CAROTID ARTERY ENDARTERECTOMY WITH PATCH ANGIOPLASTY.; Surgeon: Alejandro Madden MD; Location: [facility]IN OR; Service: Vascular Medical devices from this surgery are in the Medical Devices section. UPPER GASTROINTESTINAL ENDOSCOPY 09/11/2015 N/A ESOPHAGOGASTRODUODENOSCOPY with biopsy and danica test ; Surgeon: Quintin Gordillo MD; Location: [facility] END[facility]; Service: Endoscopy COLONOSCOPY 12/13/2021 N/A Colonoscopy ; Surgeon: Arley Rashid MD; Location: [facility]; Service: Endoscopy UPPER GASTROINTESTINAL ENDOSCOPY 12/13/2021 N/A Esophagogastroduodenoscopy with biopsies and Colonoscopy; Surgeon: Arley Rashid MD; Location: [facility]; Service: Endoscopy Medical History Medical History Date Comments Hyperlipidemia Hypertension Occlusion and stenosis of ca rotid artery without mention of cerebral infarction 05/11/2012 Tobacco abuse disorder 06/09/2013 CAD (coronary artery disease) ca bg,2 stents NH (myocardial infarction) (HCC) COPD (chronic obstructive pulmonary disease) (HC C) Shortness of breath FELIX (dyspnea on exertion) Unspecified cerebral artery occlusion with cerebral infarction aprox 3 yrs Cancer (HCC) skin canceron he ad Bilateral carotid artery disease 09/16/2016 Carotid stenosis, asymptomatic, bilateral 019 Family History Medical History Relation Name Comments Unknown Father Cancer Mother colon Heart Disease Mother Relation Name Status Comments Father Mother Social History Tobacco Use Types Packs/Day Years Used Date Smoking Tobacco: Every Day Cigarettes 1 71.6 Started: 09/11/1955 Passive Smoke Exposure: Current Smokeless Tobacco: Former Quit: 09/04/2015 Tobacco Cessation:Ready to Q uit: No; Counseling Given: Yes Comments:about 3/4 pack Alcohol Use Standard Drinks/Week Comments Not Currently 6.8 (1 standard drink = 0.6 oz p ure alcohol) Sex and Gender Information Value Date Recorded Sex Assigned at Not on file Legal Sex Male 10:04 AM EDT Gender Identity Not on file Sexual Orientation Not on file Obstetrics History Last Filed Vital Signs Vital Sign Reading Time Taken Comments Blood Pressure 106/58 12/15/2024 11:05 AM EDT Pulse 48 12/15/2024 11:01 AM EDT Temperature 36.5 C (97.7 F) 12/15/2024 11:01 AM EDT Respiratory Rate 16 12/15/2024 11:01 AM EDT Oxygen Saturation 95% 12/13/2021 12:20 PM EDT Inhaled Oxygen Concentration - - Weight 59.5 kg (131 lb 3.2 oz) 12/15/2024 11:01 AM EDT Height 167.6 cm (5' 6 ) 12/15/2024 11:01 AM EDT Body Mass Index 21.18 12/15/2024 11:01 AM EDT Plan of Treatment Upcoming Encounters Date Type Department Care Team (Late st Contact Info) Description 01/25/2026 8:00 AM EDT Appointment [facility] [address] [place] [address] [place] [phone] Hayde Gomez APRN [address] [place] [address] [address] LOPEZ [address] [place] [phone] 01/25/2026 9:00 AM EDT Appointment [facility] [address] [place] [address] [place] [phone] Hayde Gomez APRN [address] [place] [address] DR LOPEZ [address] [place] [phone] 01/25/2026 10:00 AM EDT Appointment [facility] [address] [place] [address] [place] [phone] Hayde Gomez APRN [address] [place] [address] DR LOPEZ [address] [place] [phone] 01/25/2026 11:00 AM EDT Office Visit [facility] [address] [place] [address] [place] [phone] Hayde Gomez APRN [address] [place] [address] [address] LOPEZ [address] [place] [address] [phone] Health Maintenance Due Date Last Done Comments Wellness Exam Medicare 1943 Zoster (1 of 2) 1988 Pneumococcal Vaccine 50+ (2 of 2 - PPSV23, PCV20, or PCV21) 07/30/2012 06/04/2012 RSV or 60+ (1 - 1-dose 75+ series) 2013 COVID-19 Vaccine ( - season) 2024 Influenza Vaccine (#1) 2025 , 07/08/2023, 05/18/2021, Additional history exists DTaP/TDaP/Td (2 - Td or Tdap) 02/07/2028 02/06/2018 Hepatitis B Vaccine Aged Out No longe r eligible based on patient's age to complete this topic Meningococcal B Vaccine Aged Out No l onger eligible based on patient's age to complete this topic Medical Devices Implanted Type Area Machine Edge Bander Device Identifier Shelf Expiration Date Model / Serial / Lot Patch Vascular Biologic Xenosure 0.8cm X 8cm - [id number] Implanted:Qty: 1 on 02/02/2014 by [facility] at [facility] Right: Carotid LEMAITRE VASCULAR 03/14/2016 [id number] / / [id number] Insurance [employer] MEDICARE PPO MR HU[employer] MEDICARE PPO MR Advance Directives For more information, please contact: [phone] * Full Code (Latest Code Status on File) Date Activated Date Inactivated Comments 09/11/2015 1:21 AM 09/12/2015 10:26 PM * Full Code Date Activated Date Inactivated Comments 09/11/2015 1:08 AM 09/11/2015 1:21 AM Care Teams Metal Handler Relationship Specialty Start Date End Date Gilberto Reynolds MD [address] [place] [address] [address] [place] [id number] PCP - General Family Medicine 01/21/14
--- OUTSIDE RECORDS SUMMARY | 2025-04-14 11:56 | XMS_ITS | Clinical Summary ---
Author Organization Healthcare Address [address] [place] [address] Care Team Providers Care Physical Testing Supervisor Name Role Phone Andra Cole MD Primary Care Provider [phone] Encounters Date Type Department Care Team Description 03/11/2025 Orders Only [facility] [address] [place] [phone] Sarah Jackson Renal insufficiency (Primary Dx); Vitamin D insufficiency from Last 3 Months Social History Tobacco Use Types Packs/Day Years Used Date Smoking Tobacco: Every Day Alcohol Use Standard Drinks/Week Comments No 0 (1 standard drink = 0.6 oz pur e alcohol) Sex and Gender Information Value Date Recorded Sex Assigned at Not on file Legal Sex Male 7:52 PM EDT Gender Identity Not on file Sexual Orientation Not on file Last Filed Vital Signs Vital Sign Reading Time Taken Comments Blood Pressure 142/81 05/24/2020 2:13 PM EDT Pulse 69 05/24/2020 2:13 PM EDT Temperature 36.5 C (97.7 F) 05/24/2020 2:13 PM EDT Respiratory Rate - - Oxygen Saturation - - Inhaled Oxygen Concentration - - Weight 60.8 kg (133 lb 15.9 oz) 05/24/2020 2:13 PM EDT Height 165.1 cm (5' 5 ) 05/24/2020 2:13 PM EDT Body Mass Index 22.3 05/24/2020 2:13 PM EDT Plan of Treatment Upcoming Encounters Date Type Department Care Team (Late st Contact Info) Description 05/20/2025 12:20 PM EDT Office Visit [facility] [address] [place] [phone] Huber Cortez MD [address] [place] [phone] Health Maintenance Due Date Last Done Comments [facility]-Depression Screening 1940 [facility]-Medicare Annual Wellness (AWV) 1940 [facility]-Infant/Child/Adol SDOH Screenings 1938 [facility]- SDOH Screenings 1956 [facility]-Adult SDOH Screenings 1956 [facility]-Zoster Vaccines (1 of 2) 1988 [facility]-Pneumococcal Vaccine: 50+ Years (2 of 2 - PPSV23) 06/04/2013 06/04/2012 [facility]-RSV Vaccine: 60+ Years or (1 - 1-dose 75+ series) 2013 [id number] Vaccine (3 - season) 2024 08/16/2021, 01/12/2021 [facility]-Influenza Vaccine (#1) 05/16/202506/25, 07/08/2023, 05/18/2021, Additional history exists [facility]-DTaP,Tdap,and Td Vaccines (2 - Td or Tdap) 02/07/2028 02/06/2018 HPV Vaccines Aged Out No longer eligi ble based on patient's age to complete this topic [facility]-HIB Vaccines Aged Out No longer e ligible based on patient's age to complete this topic [facility]-Hepatitis A Vaccines Aged Out No longer eligible based on patient's age to complete this topic [facility]-IPV Vaccines Aged Out No longer e ligible based on patient's age to complete this topic [facility]-Rotavirus Vaccines Aged Out No lo nger eligible based on patient's age to complete this topic Insurance JARET CROSS [id number] [facility] MEDIC[facility] Care Teams Physical Testing Supervisor Relationship Specialty Start Date End Date Andra Cole MD [address] [place] [address] PCP - General 01/26/21
--- OUTSIDE RECORDS SUMMARY | 2025-04-14 11:56 | XMS_ITS | Encounter Summary ---
Author Organization Healthcare Address [address] [place] [address] Care Team Providers Care Setter Automatic Spinning Lathe Name Role Phone Andra Cole MD Primary Care Provider [phone] Encounter Details Date Type Department Care Team (Late Contact Info) Description 03/11/2025 Orders Only [facility] [address] [phone] Sarah Jackson Renal insufficiency (Primary Dx); Vitamin D insufficiency Social History Tobacco Use Types Packs/Day Years Used Date Smoking Tobacco: Every Day Alcohol Use Standard Drinks/Week Comments No 0 (1 standard drink = 0.6 oz pur e alcohol) Sex and Gender Information Value Date Recorded Sex Assigned at Not on file Legal Sex Male 7:52 PM EDT Gender Identity Not on file Sexual Orientation Not on file documented as of this encounter Plan of Treatment Upcoming Encounters Date Type Department Care Team ([facility] Contact Info) Description 05/20/2025 12:20 PM EDT Office Visit [facility] [address] [phone] Huber Cortez MD [address] [place] [phone] Scheduled Orders Name Type Priority Associated Diagnoses Orde r Schedule Renal Function Panel, Plasma Lab Routine Renal insufficiency Expected: 03/11/2025 (Approximate), Expires: 09/10/2026 CBC and Differential Lab Routine Renal insufficiency Expected: 03/11/2025 (Approximate), Expires: 09/10/2026 Creatinine, Random, Urine Lab Routine Renal insufficiency Expected: 03/11/2025 (Approximate), Expires: 09/10/2026 Protein, Random, Urine with Creatinine Lab Routine Renal insufficiency Expected: 03/11/2025 (Approximate), Expires: 09/10/2026 Urinalysis with reflex microscopic (Culture NOT Included) Lab Routine Renal insufficiency Expected: 03/11/2025 (Approximate), Expires: 09/10/2026 PTH Intact Total Lab Routine Renal insufficiency Vitamin D insufficiency Expected: 03/11/2025 (Approximate), Expires: 09/10/2026 Vitamin D 25 Hydroxy Lab Routine Renal insufficiency Vitamin D insufficiency Expected: 03/11/2025 (Approximate), Expires: 09/10/2026 documented as of this encounter Visit Diagnoses Diagnosis Renal insufficiency- Primary Unspecified disorder of kidney and ureter Vitamin D insufficiency documented in this encounter Care Teams Setter Automatic Spinning Lathe Relationship Specialty Start Date End Date Andra Cole MD [address] [place] [address] PCP - General 01/26/21 documented as of this encounter
--- NOTE | 2025-04-14 12:07 | XR_ITS ---
FINAL REPORT CLINICAL HISTORY: METASTATIC SKELETAL SURVEY FINDINGS: SKELETAL SURVEY Images of the skull, spine, chest, pelvis, and extremities were obtained. No lucent lesions are seen to suggest metastatic disease or multiple myeloma. There are multilevel degenerative changes of the spine. There is multilevel disc disease of the appendicular skeleton. No acute soft tissue abnormality is identified. IMPRESSION: No lytic lesions to suggest metastatic disease. Reviewed, Interpreted and Dictated by Heydi Car MD Transcribed by Elsy Ortega Authenticated and [facility]
[2025-04-14 12:16] LABS: Hematocrit 28.0 % (42.0-52.0); Hemoglobin 9.1 g/dL (14.1-18.0); Immature Granulocytes % 0.3 %; Mean Corpuscular HGB Conc 32.5 g/dL (31.8-35.4); Mean Corpuscular Hemoglobin 30.3 pg (27.0-31.2); Mean Corpuscular Volume 93.3 fl (80-94); Nucleated Red Blood Cells % 0 %; Platelet Count 158 K/mm3 (142-424); Red Blood Count 3.00 M/mm3 (4.60-6.20); Red Cell Distribution Width-SD 50.9 fL; White Blood Count 7.1 K/mm3 (4.8-10.8)
[2025-04-14 12:40] LABS: Alanine Aminotransferase 10 U/L (12-78); Albumin Level 4.0 g/dl (3.5-5.0); Albumin/Globulin Ratio 1.5 (1.1-1.8); Alkaline Phosphatase 134 U/L (38-126); Anion Gap 11.1 mEq/L (5-15); Aspartate Amino Transferase 16 U/L (17-59); Bilirubin,Total 0.3 mg/dl (0.2-1.3); Blood Urea Nitrogen 25 mg/dl (9-20); Calcium 9.4 mg/dl (8.4-10.2); Carbon Dioxide 27 mmol/L (22.0-30.0); Chloride 106 mmol/L (98-107); Creatinine,Serum 2.20 mg/dl (0.66-1.25); Estimated Glomerular Filt Rate 29 ml/min (>60); GFR (African American) 35 ML/MIN (>60); Globulin 2.6 g/dL (1.3-3.2); Glucose 115 mg/dl (74-100); Potassium 5.1 mmoL/L (3.5-5.1); Sodium 139 mmol/L (136-145); Total Protein,Serum 6.6 g/dl (6.3-8.2)
[2025-04-15 16:13] LABS: Albumin 3.6 g/dL (2.9-4.4); Alpha-1-Globulin 0.3 g/dL (0.0-0.4); Alpha-2-Globulin 0.8 g/dL (0.4-1.0); Gamma Globulin 1.4 g/dL (0.4-1.8)
[2025-04-18 16:12] LABS: Immunoglobulin A, Qn 234 mg/dL (61-437); Immunoglobulin G, Qn 1408 mg/dL (603-1613); Immunoglobulin M, Qn 79 mg/dL (15-143)
[2025-04-19 12:07] LABS: PDF SCANNED IMAGE
== END 2025-04-14 23:59 | disposition home or self-care (01) ==
LOC: LAB 11:53
PROVIDERS: PCP Family Medicine; Visit Provider Internal Medicine Medical Oncology
DX: D64.9 Anemia, unspecified (principal)
CPT/HCPCS: 36415; 77075; 80053; 82784; 83521; 84155; 84165; 85025; 86334

== ENCOUNTER 2025-05-17 13:05 | Outpatient (CLI) | payer MEDICARE, SELFPAY ==
--- OUTSIDE RECORDS SUMMARY | 2025-05-17 13:11 | XMS_ITS | Clinical Summary ---
Author Organization Healthcare Address [address] [place] [address] Care Team Providers Care Broach Grinder Name Role Phone Andra Cole MD Primary Care Provider [phone] Encounters Date Type Department Care Team Description 04/22/2025 Orders Only [facility] [address] [address] Sarah Jackson CKD (chronic kidney disease) stage 4, GFR 15-29 ml/min ([facility]/HCC) (Primary Dx); Vitamin D insufficiency 03/11/2025 Orders Only [facility] [address] [place] [address] Sarah [...] Upcoming Encounters Date Type Department Care Team ([facility] st Contact Info) Description 05/20/2025 12:20 PM EDT Office Visit [facility] [address] [place] [address] Huber Cortez MD [address] [place] [address] Health Maintenance Due Date Last Done Comments [facility]-Depression Screening 1938 [facility]-Medicare Annual Wellness (AWV) 1938 [facility]-/Child/Adol SDOH Screenings 1938 [facility]- SDOH Screenings 1956 [facility]-Adult SDOH Screenings 1956 [facility]-Zoster Vaccines (1 of 2) 1988 [facility]-Pneumococcal Vaccine: 50+ Years (2 of 2 - PPSV23) 06/04/2013 06/04/2012 [facility]-RSV Vaccine: 60+ Years or (1 - 1-dose 75+ series) 2013 [id number] Vaccine (3 - season) 2024 08/16/2021, 01/12/2021 [...] patient's age to complete this topic Insurance MEDICARE Care Teams Broach Grinder Relationship Specialty Start Date End Date Andra Cole MD [facility] [place] [place] [address] PCP - General 01/26/21
--- OUTSIDE RECORDS SUMMARY | 2025-05-17 13:11 | XMS_ITS | Clinical Summary ---
Author Organization [facility] Address [facility] [address] [place], [place] [address] Phone Care Team Providers Care Supervisor Electrolytic Tinning Name Role Phone Gilberto Reynolds MD Primary Care Provider [phone] Allergies No known active allergies Medications amLODIPine-atorv [...] (11/01/2021): Added automatically from request for surgery [id number] Gastroesophageal reflux disease 11/01/2021 Overview (11/01/2021): Added automatically from request for surgery [id number] Personal history of colonic polyps 11/01/2021 Overview (11/01/2021): Added automatically from request for surgery [id number] History of duodenal ulcer 11/01/2021 Overview (11/01/2021): Added automatically from request for surgery [id number] Carotid stenosis, asymptomatic, bilateral 2018 Abdominal aortic [...] PATCH ANGIOPLASTY.; Surgeon: Alejandro Madden MD; Location: [facility] MAIN OR; Service: Vascular Medical devices from this surgery are in the Medical Devices section. UPPER GASTROINTESTINAL ENDOSCOPY 09/11/2015 N/A ESOPHAGOGASTRODUODENOSCOPY with biopsy and danica test ; Surgeon: Quintin Gordillo MD; Location: [facility] END[facility]COPY; Service: Endoscopy COLONOSCOPY 12/13/2021 N/A [...] CAD (coronary artery disease) ca bg,2 stents [place] (myocardial infarction) (HCC) COPD (chronic obstructive pulmonary [...] Date Smoking Tobacco: Every Day Cigarettes 1 71.7 Started: 09/11/1955 Passive Smoke Exposure: Current Smokeless [...] AM EDT Appointment [facility] [address] [place] [address] [place] [phone] Hayde Gomez APRN [address] [place] [address] [address] [place] [address] 01/25/2026 9:00 AM EDT Appointment [facility] [address] [place] [address] [place] [phone] Hayde Gomez APRN [address] [place] [address] DR LOPEZ [address] [place] [address] 01/25/2026 10:00 AM EDT Appointment [facility] [address] [place] [address] [place] [phone] Hayde Gomez APRN [address] [place] [address] DR LOPEZ [address] [place] [address] 01/25/2026 11:00 AM EDT Office Visit [facility] [address] [place] [address] [place] [phone] Hayde Gomez APRN [address] [place] [address] [address] [place] [address] [phone] Health Maintenance Due Date Last Done Comments [...] this topic Medical Devices Implanted Type Area Block Out Machine Operator Device Identifier Shelf Expiration Date Model / Serial / Lot Patch Vascular Biologic Xenosure 0.8cm X 8cm - [id number] Implanted:Qty: 1 on 02/02/2014 by Alejandro Madden MD at [facility] Right: Carotid LEMAITRE VASCULAR 03/14/2016 0.8P8 / / [id number] Insurance HU[employer]NA MEDICARE PPO MR HUMANA MEDICARE PPO MR Advance Directives For more information, please contact: [phone] * Full Code (Latest Code Status on File) Date Activated Date Inactivated Comments 09/11/2015 1:21 AM 09/12/2015 10:26 PM * Full Code Date Activated Date Inactivated Comments 09/11/2015 1:08 AM 09/11/2015 1:21 AM Care Teams Supervisor Electrolytic Tinning Relationship Specialty Start Date End Date Gilberto Reynolds MD [address] [place] [address] [address] [place] [phone] PCP - General Family Medicine 01/21/14
--- OUTSIDE RECORDS SUMMARY | 2025-05-17 13:11 | XMS_ITS | Encounter Summary ---
Author Organization Healthcare Address [address] [place] [address] Care Team Providers Care Digital Proofing And Platemaker Name Role Phone Andra Cole MD Primary Care Provider [phone] Encounter Details Date Type Department Care Team (Late Contact Info) Description 04/22/2025 Orders Only [facility] [address] [address] Sarah Jackson CKD (chronic kidney disease) stage 4, GFR 15-29 ml/min (CMS/HCC) (Primary Dx); Vitamin D insufficiency Social History [...] Encounters Date Type Department Care Team (Late Contact Info) Description 05/20/2025 12:20 PM EDT [facility] [address] [place] [address] Huber Cortez MD [address] [place] [phone] Scheduled Orders Name Type Priority Associated Diagnoses Orde r Schedule Renal Function Panel, Plasma Lab Routine CKD (chronic kidney disease) stage 4, GFR 15-29 ml/min (CMS/HCC) Expected: 04/22/2025 (Approximate), Expires: 10/23/2026 Creatinine, Random, Urine Lab Routine CKD (chronic kidney disease) stage 4, GFR 15-29 ml/min (CMS/HCC) Expected: 04/22/2025 (Approximate), Expires: 10/23/2026 CBC and Differential Lab Routine CKD (chronic kidney disease) stage 4, GFR 15-29 ml/min ([facility]) Expected: 04/22/2025 (Approximate), Expires: 10/23/2026 Protein, Random, Urine with Creatinine Lab Routine CKD (chronic kidney disease) stage 4, GFR 15-29 ml/min ([facility]) Expected: 04/22/2025 (Approximate), Expires: 10/23/2026 Urinalysis with reflex microscopic (Culture NOT Included) Lab Routine CKD (chronic kidney disease) stage 4, GFR 15-29 ml/min ([facility]) Expected: 04/22/2025 (Approximate), Expires: 10/23/2026 PTH Intact Total Lab Routine CKD (chronic kidney disease) stage 4, GFR 15-29 ml/min ([facility]) Vitamin D insufficiency Expected: 04/22/2025 (Approximate), Expires: 10/23/2026 Vitamin D 25 Hydroxy Lab Routine CKD (chronic kidney disease) stage 4, GFR 15-29 ml/min ([facility]) Vitamin D insufficiency Expected: 04/22/2025 (Approximate), Expires: 10/23/2026 documented as of this encounter Visit Diagnoses Diagnosis CKD (chronic kidney disease) stage 4, GFR 15-29 ml/min ([facility])- Primary Chronic kidney disease, Stage IV (severe) Vitamin D insufficiency documented in this encounter Care Teams Digital Proofing And Platemaker Relationship Specialty Start Date End Date Andra Cole MD [address] [place] [address] PCP - General 01/26/21 documented as of this encounter
[2025-05-17 13:38] LABS: Hematocrit 28.6 % (42.0-52.0); Hemoglobin 9.1 g/dL (14.1-18.0); Immature Granulocytes % 0.6 %; Mean Corpuscular HGB Conc 31.8 g/dL (31.8-35.4); Mean Corpuscular Hemoglobin 29.6 pg (27.0-31.2); Mean Corpuscular Volume 93.2 fl (80-94); Nucleated Red Blood Cells % 0 %; Platelet Count 161 K/mm3 (142-424); Red Blood Count 3.07 M/mm3 (4.60-6.20); Red Cell Distribution Width-SD 51.3 fL; White Blood Count 8.0 K/mm3 (4.8-10.8)
[2025-05-17 14:48] LABS: Albumin Level 3.8 g/dl (3.5-5.0); Anion Gap 11.7 mEq/L (5-15); Blood Urea Nitrogen 19 mg/dl (9-20); Calcium 8.6 mg/dl (8.4-10.2); Carbon Dioxide 26 mmol/L (22.0-30.0); Chloride 105 mmol/L (98-107); Creatinine,Serum 1.70 mg/dl (0.66-1.25); Estimated Glomerular Filt Rate 38 ml/min (>60); GFR (African American) 46 ML/MIN (>60); Glucose 98 mg/dl (74-100); Phosphorous 3.1 mg/dl (2.5-4.5); Potassium 4.7 mmoL/L (3.5-5.1); Sodium 138 mmol/L (136-145)
[2025-05-17 15:05] LABS: 25-OH Vitamin D, Total 35.0 ng/mL (30-100)
== END 2025-05-17 23:59 | disposition home or self-care (01) ==
LOC: LAB 13:06
PROVIDERS: PCP Family Medicine; Visit Provider Student in an Organized Health Care Education/Training Program
DX: N18.4 Chronic kidney disease, stage 4 (severe) (principal); E55.9 Vitamin D deficiency, unspecified
CPT/HCPCS: 36415; 80069; 82306; 83970; 85025

== ENCOUNTER 2025-05-18 13:00 | Outpatient (CLI) | payer MEDICARE, SELFPAY ==
[2025-05-18 13:09] LABS: Microscopic, Urine URINE MICROSCOPIC (MICROSCOPIC)
--- OUTSIDE RECORDS SUMMARY | 2025-05-18 13:18 | XMS_ITS | Clinical Summary ---
Author Organization [facility] Address [place] [address] Phone Care Team Providers Care Surgical Supply Assistant Name Role Phone Gilberto Reynolds MD Primary Care Provider [phone] Allergies No known active allergies Medications amLODIPine-atorv [...] (11/01/2021): Added automatically from request for surgery [id number] Gastroesophageal reflux disease 11/01/2021 Overview (11/01/2021): Added automatically from request for surgery [id number] Personal history of colonic polyps 11/01/2021 Overview (11/01/2021): Added automatically from request for surgery [id number] History of duodenal ulcer 11/01/2021 Overview (11/01/2021): Added automatically from request for surgery [id number] Carotid stenosis, asymptomatic, bilateral 2018 Abdominal aortic [...] PATCH ANGIOPLASTY.; Surgeon: Alejandro Madden MD; Location: [facility] OR; Service: Vascular Medical devices from this surgery are in the Medical Devices section. UPPER GASTROINTESTINAL ENDOSCOPY 09/11/2015 N/A ESOPHAGOGASTRODUODENOSCOPY with biopsy and danica test ; Surgeon: Quintin Gordillo MD; Location: [facility]; Service: Endoscopy COLONOSCOPY 12/13/2021 N/A [...] CAD (coronary artery disease) ca bg,2 stents [place] (myocardial infarction) (HCC) COPD (chronic obstructive pulmonary [...] AM EDT Appointment [facility] [address] [place] [address] [place] [phone] Hayde Gomez APRN [address] [place] [address] DR [address] [place] [address] 01/25/2026 9:00 AM EDT Appointment [facility] [address] [place] [address] [place] [phone] Hayde Gomez APRN [address] [place] [address] DR [address]Z [address] [place] [address] 01/25/2026 10:00 AM EDT Appointment [facility] [address] [place] [address] [place] [phone] Hayde Gomez APRN [address] [place] [address] DR [address]Z [address] [place] [address] 01/25/2026 11:00 AM EDT Office Visit [facility] [address] [place] [address] [place] [phone] Hayde Gomez APRN [address] [place] [address] [address] [place] [address] [phone] Health Maintenance Due Date Last Done Comments [...] this topic Medical Devices Implanted Type Area Tree Marker Device Identifier Shelf Expiration Date Model / Serial / Lot Patch Vascular Biologic Xenosure 0.8cm X 8cm - [id number] Implanted:Qty: 1 on 02/02/2014 by Alejandro Madden MD at [facility] Right: Carotid LEMAITRE VASCULAR 03/14/2016 0.8P8 / / [id number] Insurance HU[employer]NA MEDICARE PPO MR HUMANA MEDICARE PPO MR Advance Directives For more information, please contact: [phone] * Full Code (Latest Code Status on File) Date Activated Date Inactivated Comments 09/11/2015 1:21 AM 09/12/2015 10:26 PM * Full Code Date Activated Date Inactivated Comments 09/11/2015 1:08 AM 09/11/2015 1:21 AM Care Teams Surgical Supply Assistant Relationship Specialty Start Date End Date Gilberto Reynolds MD [address] [place] [address] [address] [place] [phone] PCP - General Family Medicine 01/21/14
--- OUTSIDE RECORDS SUMMARY | 2025-05-18 13:18 | XMS_ITS | Clinical Summary ---
Author Organization [facility] Address [address] [place] [address] Care Team Providers Care Manager Garage Name Role Phone Andra Cole MD Primary Care Provider [phone] Allergies No known active allergies Medications albuterol (Proventil) (2.5 MG/3ML) 0.083% nebulizer solution 05/10/2020 Active allopurinol (Zyloprim) 300 MG tablet 04/12/2020 Active amLODIPine-atorv astatin (Caduet) 10-20 MG tablet Take 1 tablet by mouth daily. 04/07/2020 Active carvedilol (Coreg) 6.25 MG tablet Take 1 tablet by mouth 2 times a day with meals. 04/12/2020 Active clopidogrel (Plavix) 75 MG tablet Take 1 tablet by mouth daily. 04/12/2020 Active ferrous sulfate 325 (65 Fe) MG tablet 04/12/2020 Active olmesartan (BENIcar) 20 MG tablet Take 1 tablet by mouth daily. 04/12/2020 Active pantoprazole (Protonix) 40 MG EC tablet Take 1 tablet by mouth daily. 04/12/2020 Active sucralfate (Carafate) 1 g tablet 04/12/2020 Active tamsulosin (Flomax) 0.4 MG 24 hr capsule 04/12/2020 Activ e Encounters Date Type Department Care Team Description 04/22/2025 Orders Only [facility] [address] [place] [phone] Sarah Jackson CKD (chronic kidney disease) stage 4, GFR 15-29 ml/min (CMS/HCC) (Primary Dx); Vitamin D insufficiency 03/11/2025 Orders Only [facility] [address] [phone] Sarah Jackson Renal insufficiency (Primary Dx); Vitamin D insufficiency from Last 3 Months Social History Tobacco Use Types Packs/Day Years Used Date Smoking Tobacco: Every Day Alcohol Use Standard Drinks/Week Comments Not Asked 0 (1 standard drink = 0.6 oz pur e alcohol) occasionally only Sex and Gender Information Value Date Recorded [...] Description 05/20/2025 12:20 PM EDT Office Visit [facility] [address] [address] Huber Cortez MD [address] [place] [phone] Health Maintenance Due Date Last Done Comments [facility]-Depression Screening 1938 [facility]-Medicare Annual Wellness (AWV) 1938 [facility]-Infant/Child/Adol SDOH Screenings 1938 [facility]- SDOH Screenings 1956 [facility]-Adult SDOH Screenings 1956 [facility]-Zoster Vaccines (1 of 2) 1988 [facility]-Pneumococcal Vaccine: 50+ Years (2 of 2 - PPSV23) 07/30/2012 06/04/2012 [facility]-RSV Vaccine: 60+ Years or (1 - 1-dose 75+ series) 2013 [id number] Vaccine (3 - season) 2025 08/16/2021, 01/12/2021 [facility]-Influenza Vaccine (#1) 05/16/202506/25, 07/08/2023, [...] patient's age to complete this topic Insurance HUMANA MEDICARE Care Teams Manager Garage Relationship Specialty Start Date End Date Andra Cole MD [facility] [place] [phone] PCP - General 01/26/21
--- OUTSIDE RECORDS SUMMARY | 2025-05-18 13:18 | XMS_ITS | Encounter Summary ---
Author Organization [facility] Address [address] [place] [address] Care Team Providers Care Creative Services Writer Name Role Phone Andra Cole MD Primary Care Provider [phone] Encounter Details Date Type Department Care Team (Late Contact Info) Description 04/22/2025 Orders Only [facility] [address] [place] [address] Sarah Jackson CKD (chronic kidney disease) [...] Description 05/20/2025 12:20 PM EDT Office Visit [facility] [address] [place] [address] Huber Cortez MD [address] [place] [phone] Scheduled Orders Name Type Priority Associated Diagnoses Orde r Schedule Renal Function Panel, Plasma Lab Routine CKD (chronic kidney disease) stage 4, GFR 15-29 ml/min (CMS/HCC) Expected: 04/22/2025 (Approximate), Expires: 10/23/2026 Creatinine, Random, Urine Lab Routine CKD (chronic kidney disease) stage 4, GFR 15-29 ml/min ([facility]) Expected: 04/22/2025 (Approximate), Expires: 10/23/2026 CBC and Differential Lab Routine CKD (chronic kidney disease) stage 4, GFR 15-29 ml/min ([facility]) Expected: 04/22/2025 (Approximate), Expires: 10/23/2026 Protein, Random, Urine with Creatinine Lab Routine CKD (chronic kidney disease) stage 4, GFR 15-29 ml/min ([facility]) Expected: 04/22/2025 (Approximate), Expires: 10/23/2026 Urinalysis with reflex microscopic (Culture NOT Included) Lab Routine CKD (chronic kidney disease) stage 4, GFR 15-29 ml/min ([facility]) Expected: 04/22/2025 (Approximate), Expires: 10/23/2026 PTH Intact Total Lab Routine CKD (chronic kidney disease) stage 4, GFR 15-29 ml/min ([facility]) Vitamin D insufficiency Expected: 04/22/2025 (Approximate), Expires: 10/23/2026 Vitamin D 25 Hydroxy Lab Routine CKD (chronic kidney disease) stage 4, GFR 15-29 ml/min ([facility]) Vitamin D insufficiency Expected: 04/22/2025 (Approximate), Expires: 10/23/2026 documented as of this encounter Visit Diagnoses Diagnosis CKD (chronic kidney disease) stage 4, GFR 15-29 ml/min ([facility])- Primary Chronic kidney disease, Stage IV (severe) Vitamin D insufficiency documented in this encounter Care Teams Creative Services Writer Relationship Specialty Start Date End Date Andra Cole MD [address] [place] [id number] PCP - General 01/26/21 documented as of this encounter
[2025-05-18 14:56] LABS: Bilirubin,Urine Negative (Negative); Color,Urine YELLOW (Yellow); Glucose,Urine (UA) Negative (Negative); Ketones,Urine Negative (Negative); Leukocyte Esterase,Urine Negative (Negative); PH,Urine 5.5 (5.0-8.5); Protein,Urine Negative (Negative); Specific Gravity, Urine 1.010 (1.005-1.030); Urobilinogen,Urine 0.2 EU/dl (0.2)
[2025-05-18 15:27] LABS: Bacteria,Urine 1+ /lpf; WBC,Urine Occasional #/hpf (0-3)
== END 2025-05-18 23:59 | disposition home or self-care (01) ==
LOC: LAB.DROPOF 13:01
PROVIDERS: PCP Family Medicine; Visit Provider Student in an Organized Health Care Education/Training Program
DX: N28.9 Disorder of kidney and ureter, unspecified (principal)
CPT/HCPCS: 36415; 81001; 82570; 84156

== ENCOUNTER 2025-06-30 09:24 | Outpatient (CLI) | payer MEDICARE, SELFPAY ==
--- OUTSIDE RECORDS SUMMARY | 2025-05-20 12:20 | XMS_ITS | Encounter Summary ---
Author Organization [facility] Address [address] [place] [address] Care Team Providers Care Soldering Inspector Name Role Phone Andra Cole MD Primary Care Provider [phone] Reason for Referral * Consultation (Routine) - Authorized Specialty Diagnoses / Procedures Referred By Alison weiss Referred To Contact Diagnoses 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 kidney disease Huber Cortez MD [address] [place] [address] Phone: tel: fax: Referral ID Status Reason Start Date Expiration Date V isits Requested Visits Authorized [id number] Authorized 05/20/2025 11/19/2026 1 1 Reason for Visit * Reason Comments Consult Pt is a 84 year old male that presents to the clinic on this date for a consult. Pt denies pain at the current moment. PT denies complaints and concerns for this provider at the current moment. * Consultation (Routine) - Closed Specialty Diagnoses / Procedures Referred By Alison t Referred To Contact Nephrology Diagnoses CKD (chronic kidney disease) stage 4, GFR 15-29 ml/min ([facility]) Huber Cortez MD [address] [place] [address] Phone: tel: fax: Referral ID Status Reason Start Date Expiration Date V isits Requested Visits Authorized [id number] Closed Specialty Services Required 12/10/2024 06/11/2026 1 1 Encounter Details Date Type Department Care Team (Late st Contact Info) Description 05/20/2025 12:20 PM EDT Office Visit Psychiatric [address] [place] [address] Huber Cortez MD [address] [place] [address] 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 kidney disease (Primary Dx); CKD stage 3b, GFR 30-44 ml/min (CMS/HCC); Other hyperlipidemia; Chronic kidney disease-mineral and bone disorder (CKD-MBD); Gout due to renal impairment, unspecified chronicity, unspecified site Social History Tobacco Use Types Packs/Day Years Used Date Smoking Tobacco: Every Day Cigarettes 1 72 Started: 06/15/1955 Smokeless Tobacco: Never Alcohol Use Standard Drinks/Week Comments Not Asked 0 (1 standard drink = 0.6 oz pur e alcohol) occasionally only AUDIT-C Answer Date Recorded Q1: How often do you have a drink containing alc ohol? Never 05/20/2025 Average Number of Drinks Not on file 025 Q3: How often do you have si x or more drinks on one occasion? Never 05/20/2025 Sex and Gender Information Value Date Recorded Sex Assigned at Not on file Legal Sex Male 7:52 PM EDT Gender Identity Not on file Sexual Orientation Not on file documented as of this encounter Last Filed Vital Signs Vital Sign Reading Time Taken Comments Blood Pressure 114/54 05/20/2025 12:24 PM EDT Pulse 73 05/20/2025 12:24 PM EDT Temperature - - Respiratory Rate 16 05/20/2025 12:24 PM EDT Oxygen Saturation 96% 05/20/2025 12:24 PM EDT Inhaled Oxygen Concentration - - Weight 52.6 kg (116 lb) 05/20/2025 12:24 PM EDT Height 165.1 cm (5' 5 ) 05/20/2025 12:24 PM EDT Body Mass Index 19.3 05/20/2025 12:24 PM EDT documented in this encounter Functional Status documented as of this encounter Miscellaneous Notes * Progress Notes - Huber Cortez MD - 05/20/2025 12:20 PM EDT Nephrology Outpatient Clinic New [facility] [place] [place] Patient: J Luis Brumfield Primary Care Provider: Andra Cole MD Referring Provider: Andra Cole MD Reason for consult: CKD HPI/Subjective J Luis Brumfield is a 84 y.o. male with a PMH of PVD, BL MIKE s/p BL CEA, AAA, Anemia, who presents forevaluation of elevated creatinine. Mr. Brumfield has an extensive history of vascular disease and is a former smoker. He has had bilateral carotid endarterectomies. He has a history of bleeding gastric ulcer and has been on a ppi for 5+ years. He had labs in november 2024 that showed anemia hgb ~9 and acute kidney injury creatinine 2.7. He was referred to heme about his anemia and Dr. Miller saw him and performed a work up and concluded most likely cause of anemia in renal insufficiency. His pcp dr. Reynolds stopped his pantoprazole about3 months ago because of concerns it was effecting his kidneys and referred him to Nephrology. Today he feels well. He is very thin, has no swelling, no urinary issues. He takes allopurinol and has not had a gout episode in years. He is OFF his pantoprazole. He takes tamsulosin and only gets up ~1 x at night. No history of kidney problems otherwise he is aware of. Daughter is with him at clinic visit to provide additional history and support for patient. ROS Review of Systems History: Past Medical History[1] Problem List[2] Surgical History[3] Family History[4] Social History Socioeconomic History Marital status: Spouse name: Not on file Number of children: Not on file Years of education: Not on file Highest education level: Not on file Occupational History Not on file Tobacco Use Smoking status: Every Day Current packs/day: 1.00 Average packs/day: 1 pack/day for 71.9 years (71.9 ttl pk-yrs) Types: Cigarettes Start date: 06/15/1955 Smokeless tobacco: Never Vaping Use Vaping status: Never Used Substance and Sexual Activity Alcohol use: Not on file Comment: occasionally only Drug use: Never Sexual activity: Not on file Other Topics Concern Not on file Social History Narrative Not on file Social Drivers of Health Financial Resource Strain: Not on file Food Insecurity: Not on file Transportation Needs: Not on file Physical Activity: Not on file Stress: Not on file Social Connections: Not on file Intimate Partner Violence: Not on file Housing Stability: Not on file Allergies[5] Medications: Current Medications: Current Outpatient Medications Medication Instructions albuterol (Proventil) (2.5 MG/3ML) 0.083% nebulizer solution allopurinol (Zyloprim) 300 MG tablet amLODIPine-atorvastatin (Caduet) 10-20 MG tablet 1 tablet, Daily carvedilol (COREG) 6.25 mg, 2 times daily with meals clopidogrel (PLAVIX) 75 mg, Daily ferrous sulfate 325 (65 Fe) MG tablet olmesartan (BENICAR) 20 mg, Daily pantoprazole (PROTONIX) 40 mg, Daily sucralfate (Carafate) 1 g tablet tamsulosin (Flomax) 0.4 MG 24 hr capsule Objective Visit Vitals BP 114/54 (BP Location: Left arm, Patient Position: Sitting, BP Cuff Size: Small adult) Pulse 73 Resp 16 Ht 1.651 m (5' 5 ) Wt 52.6 kg (116 lb) SpO2 96% BMI 19.30 kg/m?? Smoking Status Every Day BSA 1.55 m?? Heart Rate: [73] 73 Resp: [16] 16 BP: (114)/(54) 114/54 Physical Exam: Physical Exam Constitutional: General: He is not in acute distress. Appearance: He is not ill-appearing. HENT: Head: Normocephalic. Nose: Nose normal. Mouth/Throat: Mouth: Mucous membranes are dry. Pharynx: Oropharynx is clear. Cardiovascular: Rate and Rhythm: Normal rate. Pulses: Normal pulses. Heart sounds: Normal heart sounds. Pulmonary: Effort: Pulmonary effort is normal. Abdominal: General: Abdomen is flat. Musculoskeletal: General: Normal range of motion. Cervical back: Normal range of motion. Right lower leg: No edema. Left lower leg: No edema. Skin: General: Skin is warm and dry. Capillary Refill: Capillary refill takes less than 2 seconds. Neurological: General: No focal deficit present. Mental Status: He is alert and oriented to person, place, and time. Mental status is at baseline. Psychiatric: Mood and Affect: Mood normal. Behavior: Behavior normal. Thought Content: Thought content normal. Judgment: Judgment normal. Laboratory: I have personally reviewed these lab results and discuss their significance below. LAB RESULTS 11/23/24 Iron 87, iron sat 31 RFP: Na 132, K 4.8, Cl 101, CO2 25, BUN 31, Cr 2.7 egfr 23 , Glu 92, Ca 8.6, Alb 4.1, Ca 8.6 05/17/2025 RFP: Na 138, K 4.7, Cl 105, CO2 26, BUN 19, Cr 1.7, GFR 38, Glu 98, Ca 8.6, Phos 3.1, Alb 3.8 Ipth 84 Ur creat 113, prot 13, ratio <0.1 UA: neg blood/prot CBC: WBC 8. HGB 9.1, Plt 161 Imaging: No recent kidney imaging for review Impression & Plan: #YELENA on CKD #Suspect CKD 3b vs CKD 4 Etiology: Atherosclerotic disease Baseline serum creatinine: 1.7-2 Most recent Scr: 1.7 Electrolytes, acid/base, volume status wnl Urine: bland Anatomy: normal , suspect renal atherosclerosis Risk factor reduction to slow progression of kidney disease: -BP Control goal BP <130/80 -DM control goal A1c <7.0% -Lifestyle management: ---Maintain healthy weight: Body mass index is 19.3 kg/m??. Is low ---Diet recommendations: Heart healthy and Low sodium <2g/day ---Daily exercise 20-30 minutes as tolerated -Avoid NSAIDs -HELIO blockade: olmesartan -SGLT2 inhibitor: None #Anemia in CKD 3b/4 -Iron studies normal. Suspect ePO deficiency due to renal disease. Also being on 300 mg of allopurinol likely not helping. -Will plan to start aranesp 40 mcg q28 days -Recommend reducing allopurinol from 300mg to 100mg daily #hx of gout -on allopurinol 300mg -Recommend stopping or decreasing dose of allopurinol because it can cause some degree of marrow suppression in patients with ckd. #hx of bleed gastric ulcer -now off PPI -recommend starting H2 idna such as famotidine 20 mg at bedtime #BPH - continue tamsulosin #HTN - continue olmesartan, carvedilol, amlodipine and statin - BP low at today's clinic visit Recommendations and plan: -I have reviewed Mr. Montana labs and recent notes. He hsa had some fluctuating creatinines, most recently back down t o1.7. He otherwise appears well. Very thin, elderly male his creatinine is likely reduced because of low muscle mass so I will check a Cystatin C with next labs. I agree with Dr. Miller his anemia is likely from renal insufficiency so I will plan to start him on Aranesp 40 mcg q28 days. -I also will recommend reducing allopurinol to 100 mg daily -Recommend starting famotidine 20 mg daily or at bedtime because of history of gastric ulcer -avoid NSAIDs -continue good BP control -on Olmesartan RTC in 3 months Huber Cortez MD Division of Nephrology [facility] Counseling Documentation: The patient was counseled regarding COUNSELING TOPICS: diagnostic results, prognosis, risks and benefit of treatment options, risk factor reductions, instructions for management, patient and family education, medication changes, diagnostic impressions, Heart healthy diet, regular physical activity and weight control, Avoidance of NSAIDs and other nephrotoxins, and intermodal truck driver nature of condition. Education provided was verbal counseling.Additional time was spent in care coordination including medical record review. ENCOUNTER TIMING: I personally spent a total of 40 minutes on this encounter. This time includes face to face with patient, counseling and discussion, lab/result interpretation, coordination of follow-up care, document review. The total time of encounter was 40 minutes and greater than 50% of the visit was spent in c ounseling/coordination of care. . MDM: - was based on the following: History obtained from family Labs reviewed Urine studies: UA and Metabolic profile: renal panel or CBC Past imaging reviewed Old chart reviewed Medication monitoring for drug toxicity darbepoeiten/aranesp ORDERS PLACED THIS ENCOUNTER Orders Placed This Encounter Procedures Cystatin C Standing Status: Future Expected Date: 08/18/2025 Expiration Date: 11/21/2026 Release to patient in [facility]: Immediate Renal function panel Standing Status: Future Expected Date: 08/18/2025 Expiration Date: 11/21/2026 Release to patient in [facility]: Immediate [1] Iron & Total Iron Binding Capacity, Plasma (Includes Transferrin) Standing Status: Future Expected Date: 08/18/2025 Expiration Date: 11/21/2026 Release to patient in [facility]: Immediate Ferritin, Serum Standing Status: Future Expected Date: 08/18/2025 Expiration Date: 11/21/2026 Release to patient in [facility]: Immediate Transferrin, Plasma Standing Status: Future Expected Date: 08/18/2025 Expiration Date: 11/21/2026 [facility] CBC Standing Status: Future Expected Date: 08/18/2025 Expiration Date: 11/21/2026 Release to patient in [facility]: Immediate [1] Follow Up Nephrology [facility] Laura Standing Status: Future Expected Date: 08/19/2025 Expiration Date: 06/19/2026 Referral Priority: Routine Referral Type: Consultation Number of Visits Requested: 1 Problem List Items Addressed This Visit 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 kidney disease - Primary Relevant Medications carvedilol (Coreg) 6.25 MG tablet ferrous sulfate 325 (65 Fe) MG tablet olmesartan (BENIcar) 20 MG tablet tamsulosin (Flomax) 0.4 MG 24 hr capsule darbepoetin jacques (Aranesp, Albumin Free,) 40 MCG/0.4ML solution prefilled syringe Other Relevant Orders Cystatin C Renal function panel Iron & Total Iron Binding Capacity, Plasma (Includes Transferrin) Ferritin, Serum Transferrin, Plasma CBC Follow Up Nephrology CKD stage 3b, GFR 30-44 ml/min ([facility]) Relevant Medications carvedilol (Coreg) 6.25 MG tablet ferrous sulfate 325 (65 Fe) MG tablet olmesartan (BENIcar) 20 MG tablet tamsulosin (Flomax) 0.4 MG 24 hr capsule darbepoetin jacques (Aranesp, Albumin Free,) 40 MCG/0.4ML solution prefilled syringe Other hyperlipidemia Chronic kidney disease-mineral and bone disorder (CKD-MBD) Relevant Medications carvedilol (Coreg) 6.25 MG tablet ferrous sulfate 325 (65 Fe) MG tablet olmesartan (BENIcar) 20 MG tablet tamsulosin (Flomax) 0.4 MG 24 hr capsule darbepoetin jacques (Aranesp, Albumin Free,) 40 MCG/0.4ML solution prefilled syringe Gout due to renal impairment I confirm that I have addressed the patient's longitudinal multifaceted and complex health related active and chronic conditions that will require ongoing care with myself or someone on my team. [1] Past Medical History: Diagnosis Date Old myocardial infarction History of myocardial infarction Personal history of diseases of the blood and blood-forming organs and certain disorders involving the immune mechanism History of hemorrhagic diathesis Personal history of other diseases of the circulatory system History of hypertension Personal history of other malignant neoplasm of skin History of malignant neoplasm of skin [2] There is no problem list on file for this patient. [3] Past Surgical History: Procedure Laterality Date CARDIAC STENT CARDIAC SURGERY MOHS SURGERY N/A Mohs surgery from [employer] [4] No family history on file. [5] Allergies Allergen Reactions Bee Venom Anaphylaxis Penicillins Anaphylaxis documented in this encounter Plan of Treatment Upcoming Encounters Date Type Department Care Team (Late st Contact Info) Description 09/02/2025 1:20 PM EST Office Visit Psychiatric [address] [place] [address] Huber Cortez MD [address] [place] [address] Scheduled Orders Name Type Priority Associated Diagnoses Orde r Schedule Cystatin C Lab Routine 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 kidney disease Expected: 08/18/2025 (Approximate), Expires: 11/21/2026 Renal function panel Lab Routine 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 kidney disease Expected: 08/18/2025 (Approximate), Expires: 11/21/2026 Iron & Total Iron Binding Capacity, Plasma (Includes Transferrin) Lab Routine 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 kidney disease Expected: 08/18/2025 (Approximate), Expires: 11/21/2026 Ferritin, Serum Lab Routine 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 kidney disease Expected: 08/18/2025 (Approximate), Expires: 11/21/2026 Transferrin, Plasma Lab Routine 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 kidney disease Expected: 08/18/2025 (Approximate), Expires: 11/21/2026 CBC Lab Routine 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 kidney disease Expected: 08/18/2025 (Approximate), Expires: 11/21/2026 Scheduled Referrals Name Type Priority Associated Diagnoses Order Schedule Follow Up Nephrology Outpatient Referral Routine 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 kidney disease Expected: 08/19/2025 (Approximate), Expires: 06/19/2026 documented as of this encounter Visit Diagnoses Diagnosis 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 kidney disease- Primary CKD stage 3b, GFR 30-44 ml/min (CMS/HCC) Other hyperlipidemia 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
--- OUTSIDE RECORDS SUMMARY | 2025-06-30 09:36 | XMS_ITS | Clinical Summary ---
Author Organization [facility] Address [address] [place] [address] Care Team Providers Care Clinical Lab Clerk Name Role Phone Andra Cole MD Primary Care Provider [phone] Allergies Active Allergy Reactions Criticality Noted Date Comments Bee Venom Anaphylaxis High 05/20/2025 Penicillins Anaphylaxis High 05/20/2025 Medications albuterol (Proventil) (2.5 MG/3ML) 0.083% nebulizer solution 05/10/2020 Active amLODIPine-ator vastatin (Caduet) 10-20 MG tablet Take 1 tablet [...] MG 24 hr capsule 04/12/2020 Activ e Epoetin [place]-epbx (Retacrit) 74730 UNIT/ML injection Inject 1 mL under the skin every 14 days. 2 mL 1 05/25/2025 Active Syringe/Needle, Disp, (B-D ECLIPSE SYRINGE) 27G X 1/2 1 ML misc Use as directed with Retacrit. 6 each 1 05/25/2025 Active Active Problems Problem Noted Date Diagnosed Date 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 kidney disease 025 CKD stage 3b, GFR 30-44 ml/min 05/20/2025 Other hyperlipidemia 05/20/2025 Chronic kidney disease-mineral and bone disorder (CKD-MBD) 05/20/2025 Gout due to renal impairment 05/20/2025 Encounters Date Type Department Care Team Description 06/17/2025 Refill [facility] Nephrology, Bone & Mineral Metabolism [address], [address] [place] [address] Huber Cortez MD 06/14/2025 Orders Only [facility] Nephrology, Bone & Mineral Metabolism [address], [address] [place] [address] Bakari, Savanna L, PharmD 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 kidney disease (Primary Dx) 05/26/2025 Telephone [facility] Nephrology, Bone & Mineral Metabolism [address], [address] [place] [address] Bakari, Savanna L, PharmD 05/25/2025 Orders Only [facility] Nephrology, Bone & Mineral Metabolism [address], [address] [place] [address] Bakari, Savanna L, PharmD 05/20/2025 12:20 PM EDT Office Visit [facility] [address] [place] [address] Huber Cortez MD 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 kidney disease (Primary Dx); CKD stage 3b, GFR 30-44 ml/min ([facility]); Other hyperlipidemia; Chronic kidney disease-mineral and bone disorder (CKD-MBD); Gout due to renal impairment, unspecified chronicity, unspecified site 05/20/2025 Travel 04/22/2025 Orders Only [facility] [address] [place] [address] Sarah Jackson CKD (chronic kidney disease) stage 4, GFR 15-29 ml/min (CMS/HCC) (Primary Dx); Vitamin D insufficiency from Last [...] Pulse 73 05/20/2025 12:24 PM EDT Temperature 36.5 C (97.7 F) 05/24/2020 2:13 PM EDT Respiratory Rate 16 05/20/2025 12:24 PM EDT Oxygen Saturation 96% 05/20/2025 12:24 PM EDT Inhaled Oxygen Concentration - - Weight 52.6 kg (116 lb) 05/20/2025 12:24 PM EDT Height 165.1 cm (5' 5 ) 05/20/2025 12:24 PM EDT Body Mass Index 19.3 05/20/2025 12:24 PM EDT Plan of Treatment Upcoming Encounters Date Type Department Care Team (Late st Contact Info) Description 09/02/2025 1:20 PM EST Office Visit [facility] [address] [place] [address] Huber Cortez MD [address] [place] [phone] Health Maintenance Due Date Last Done Comments [facility]-Depression Screening 1938 [facility]-Medicare Annual Wellness (AWV) 1938 [facility]-/Child/Adol SDOH Screenings 1938 [facility]- SDOH Screenings 1956 [facility]-Adult SDOH Screenings 1956 [facility]-Zoster Vaccines (1 of 2) 1988 [facility]-Pneumococcal Vaccine: 50+ Years (2 of 2 - PPSV23, PCV20, or PCV21) 07/30/2012 06/04/2012 [facility]-RSV Vaccine: 60+ Years or (1 - 1-dose 75+ series) 2013 [id number] Vaccine (3 - season) 2025 08/16/2021, 01/12/2021 [...] complete this topic Insurance MEDICARE Care Teams Clinical Lab Clerk Relationship Specialty Start Date End Date Andra Cole MD [id number] [facility] - General 01/26/21
--- OUTSIDE RECORDS SUMMARY | 2025-06-30 09:36 | XMS_ITS | Encounter Summary ---
Author Organization Healthcare Address [address] [place] [address] Care Team Providers Care Policy Service Coordinator Name Role Phone Andra Cole MD Primary Care Provider [phone] Encounter Details Date Type Department Care Team ([facility] st Contact Info) Description 06/14/2025 Orders Only [facility] Nephrology, Bone & Mineral Metabolism [address], [address] [place] [address] Savanna Villegas, PharmD [address] [place] [address] 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 kidney disease (Primary Dx) Social History Tobacco Use Types Packs/Day Years [...] on file documented as of this encounter Miscellaneous Notes * Clinician Note - Savanna Villegas, PharmD - 06/14/2025 12:59 PM EDT Patient planning to get labs on 06/30 at [facility] with cardiology appointment. Orders havebeen faxed. Savanna Villegas PharmD, BCACP Clinical Pharmacist [facility]rology[facility] [address] [place] [address] documented in this encounter Plan of Treatment Upcoming Encounters Date Type Department Care Team (Late st Contact Info) Description 09/02/2025 1:20 PM EST Office Visit [facility] [address] [place] [address] Huber Cortez MD [address] [place] [address] Scheduled Orders Name Type Priority Associated Diagnoses Orde r Schedule CBC Lab Routine 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 kidney disease 12 Occurrences starting 06/14/2025 until 12/12/2026 documented as of this encounter Visit Diagnoses Diagnosis 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 kidney disease- Primary documented in this encounter Additional Health Concerns Assessment Noted Time A Body Mass Index follow-up plan has been documented for the patient 05/20/2025 1:20 PM EDT documented as of this encounter Care Teams Policy Service Coordinator Relationship Specialty Start Date End Date Andra Cole MD [facility] [place] [address] PCP - General 01/26/21 documented as of this encounter
--- OUTSIDE RECORDS SUMMARY | 2025-06-30 09:36 | XMS_ITS | Clinical Summary ---
Author Organization [facility] Address [address] [place] [address] Phone Care Team Providers Care Cdl Program Coordinator Name Role Phone Gilberto Reynolds MD Primary Care Provider [phone] Allergies No known active allergies Medications amLODIPine-atorv [...] (11/01/2021): Added automatically from request for surgery [id number] Gastroesophageal reflux disease 11/01/2021 Overview (11/01/2021): Added automatically from request for surgery [id number] Personal history of colonic polyps 11/01/2021 Overview (11/01/2021): Added automatically from request for surgery [id number] History of duodenal ulcer 11/01/2021 Overview (11/01/2021): Added automatically from request for surgery [id number] Carotid stenosis, asymptomatic, bilateral 2018 Abdominal aortic [...] PATCH ANGIOPLASTY.; Surgeon: Alejandro Madden MD; Location: [facility] MAIN OR; Service: Vascular Medical devices from this surgery are in the Medical Devices section. UPPER GASTROINTESTINAL ENDOSCOPY 09/11/2015 N/A ESOPHAGOGASTRODUODENOSCOPY with biopsy and danica test ; Surgeon: Quintin Gordillo MD; Location: [facility] ENDOSCOPY; Service: Endoscopy COLONOSCOPY 12/13/2021 N/A Colonoscopy [...] CAD (coronary artery disease) ca bg,2 stents [place] (myocardial infarction) (HCC) COPD (chronic obstructive pulmonary [...] Date Smoking Tobacco: Every Day Cigarettes 1 71.8 Started: 09/11/1955 Passive Smoke Exposure: Current Smokeless [...] AM EDT Appointment [facility] [address] [place] [address] [address] [place] [phone] Hayde Gomez APRN [address] [place] [address] DR LOPEZ [address] [place] [phone] 01/25/2026 9:00 AM EDT Appointment [facility] [address] [place] [address] [place] [phone] Hayde Gomez APRN [address] [place] [address] DR LOPEZ [address] [place] [address] [phone] 01/25/2026 10:00 AM EDT Appointment [facility] [address] [place] [address] [place] [phone] Hayde Gomez APRN [address] [place] [address] DR LOPEZ [address] [place] [phone] 01/25/2026 11:00 AM EDT Office Visit [facility] [address] [place] [address] [place] [phone] Hayde Gomez APRN [address] [place] [address] [address] LOPEZ [address] [place] [address] [phone] Health Maintenance Due Date Last Done Comments Wellness Exam Medicare 1943 Zoster (1 of 2) 1988 Pneumococcal Vaccine 50+ (2 of 2 - PPSV23, PCV20, or PCV21) 07/30/2012 06/04/2012 RSV or 60+ (1 - 1-dose 75+ series) 2013 COVID-19 Vaccine ( - season) 2025 Influenza Vaccine (#1) 2025 , 07/08/2023, 05/18/2021, Additional history exists DTaP/TDaP/Td (2 - Td or Tdap) 02/07/2028 02/06/2018 Hepatitis B Vaccine Aged Out No longe r eligible based on patient's age to complete this topic Meningococcal B Vaccine Aged Out No l onger eligible based on patient's age to complete this topic Medical Devices Implanted Type Area Customer Experience Consultant Device Identifier Shelf Expiration Date Model / Serial / Lot Patch Vascular Biologic Xenosure 0.8cm X 8cm - [id number] Implanted:Qty: 1 on 02/02/2014 by Alejandro Madden MD at [facility] Right: Carotid LEMAITRE VASCULAR 03/14/2016 0.8P8 / / [id number] Insurance HUMANA MEDICARE PPO MR HUMANA MEDICARE PPO MR Advance Directives For more information, please contact: [phone] * Full Code (Latest Code Status on File) Date Activated Date Inactivated Comments 09/11/2015 1:21 AM 09/12/2015 10:26 PM * Full Code Date Activated Date Inactivated Comments 09/11/2015 1:08 AM 09/11/2015 1:21 AM Care Teams Cdl Program Coordinator Relationship Specialty Start Date End Date Gilberto Reynolds MD [address] [place] [address] [address] [place] [phone] PCP - General Family Medicine 01/21/14
--- OUTSIDE RECORDS SUMMARY | 2025-06-30 09:36 | XMS_ITS | Encounter Summary ---
Author Organization Healthcare Address [address] [place] [address] Care Team Providers Care Mandolin Repair Person Name Role Phone Andra Cole MD Primary Care Provider [phone] Encounter Details Date Type Department Care Team (Latest Contact Info) Description 05/20/2025 Travel Social History Tobacco Use Types Packs/Day Years [...] on file documented as of this encounter Functional Status documented as of this encounter Plan of Treatment Upcoming Encounters Date Type Department Care Team (Late st Contact Info) Description 09/02/2025 1:20 PM EST Office Visit [facility] [address] [place] [phone] Huber Cortez MD [address] [place] [phone] documented as of this encounter Visit Diagnoses Not on filedocumented in this encounter Additional Health Concerns Assessment Noted Time A Body Mass Index follow-up plan has been documented for the patient 05/20/2025 1:20 PM EDT documented as of this encounter Care Teams Mandolin Repair Person Relationship Specialty Start Date End Date Andra Cole MD [facility] [place] [address] PCP - General 01/26/21 documented as of this encounter
--- OUTSIDE RECORDS SUMMARY | 2025-06-30 09:36 | XMS_ITS | Encounter Summary ---
Author Organization Healthcare Address [address] [place] [address] Care Team Providers Care Flat Cutter Name Role Phone Andra Cole MD Primary Care Provider [phone] Encounter Details Date Type Department Care Team ([facility] st Contact Info) Description 05/26/2025 Telephone [facility] Nephrology, Bone & Mineral Metabolism [address] [facility], [address] [place] [address] Savanna Villegas, PharmD [address] [place] [address] Social History Tobacco Use Types Packs/Day Years [...] as of this encounter Miscellaneous Notes * Telephone Encounter - Savanna Villegas, PharmD - 05/26/2025 10:51 AM EDT J Luis Brumfield is a 84 y.o. male with a PMH of PVD, BL MIKE s/p BL CEA, AAA, Anemia. Patient last sawDr. Huber Cortez on 05/20/25. Recent changes include: initiate LITZY Today, I spoke with J Luis Brumfield's daughter via telephone to provide education on LITZY mechanism ofaction, adverse effects, injection technique and medication monitoring requirements. he is prescribed Retacrit (epoetin) 10,000 units every 14 days. Patient's last hemoglobin on 05.16 was 05/17/25. 05/17/2025 RFP: Na 138, K 4.7, Cl 105, CO2 26, BUN 19, Cr 1.7, GFR 38, Glu 98, Ca 8.6, Phos 3.1, Alb 3.8 CBC: WBC 8. HGB 9.1, Plt 161 Education was provided on mechanism of action, potential side effects, and the importance of home blood pressure monitoring on therapy. Explained that the medication works by inducing erythropoiesis and release of reticulocytes from the bone marrow. This results in increased reticulocytes and eventually a rise in hemoglobin and hematocrit levels. Side effects can include hypertension, headache, N&V, injection site reactions/pain, flu-like symptoms such as arthralgia, cough, fever. Patient understands the importance of regular lab monitoring to assess Hgb levels for efficacy and safety of medication, avoiding Hgb levels >11, to minimize risk of cardiovascular events. J Luis Brumfield's daughter was instructed on how to draw up and inject epoetin jacques, including the following steps: Wash hands with soap and water before preparing the medication/injection Remove medication from refrigeration, protect from light. Ensure medication is clear, colorless, and free of particles. Do not shake medication. Flip off protective cap on the top of vial and clean the rubber stopper with an alcohol wipe. Always use a clean needle and syringe for each injection. Pull back the plunger to draw air into the syringe to equal the amount of the dose. With the vial on a flat surface, insert the needle straight down through the hull rubber stopper ofthe vial. Push the plunger of the syringe down to inject air into vial. Turn vial and syringe upside down and slowly pull back plunger to fill syringe with medication to the number (mL) that matches your prescribed dose. Check syringe for air bubbles. To remove any bubbles, gently tap syringe until air bubbles rise to the top of syringe. Slowly push plunger to force out air bubbles. Administer dose subcutaneously in the abdomen (2 inches from navel), in outer area of upper arms, or in upper outer thigh area. Clean area of skin with alcohol wipe. Use one hand to pinch a fold of skin at cleaned injection site. Hold syringe like you would a pencil, inject needle at 90-degree angle using a quick, dart-like motion. Inject the medication by pushing the plunger all the way down. Hold needle in skin for several seconds before removing. Discard used needle/syringe in sharps container. Never reuse needles. Patient's daughter expressed understanding of proper administration technique and feels comfortablecompleting injections at home. Patient's blood pressure in clinic today was 04/12/2020 10:57 AM 05/24/2020 2:13 PM 05/20/2025 12:24 PM Vitals Systolic 116 142 114 Diastolic 54 81 54 Heart Rate 69 73 Temp 36.5 C Resp 16 Height (cm) 165.1 cm 165.1 cm 165.1 cm Weight (kg) 64.41 kg 60.78 kg 52.617 kg BMI 23.63 kg/m2 22.3 kg/m2 19.3 kg/m2 BSA (m2) 1.72 m2 1.67 m2 1.55 m2 Visit Report Report The patient reports taking the following medications for blood pressure: Amlodipine 10mg daily Carvedilol 6.25mg twice daily Assessment/Plan Anemia - INITIATE Retacrit (epoetin) 10,000 units (1mL) subcutaneously every 14 days - Monitor BP closely at home throughout therapy, Hold dose if BP >150/90 and call clinic. - Repeat CBC 4-6 weeks after initiation, target Hgb 10-11. J Luis Brumfield expressed understanding of plan outlined above and is agreeable. Follow-up with patient via telephone in 4-6 weeks after reviewing lab results, Follow-up with provider as scheduled. J Luis Brumfield understands to call sooner with any questions or concerns. Savanna Villegas, Hao, BCACP Clinical Pharmacist Nephrology, Bone & Mineral Metabolism Clinic [facility] [place] [address] documented in this encounter Plan of Treatment Upcoming Encounters Date Type Department Care Team (Late st Contact Info) Description 09/02/2025 1:20 PM EST [facility] [address] [facility] [address] [place] [address] Huber Cortez MD [address] [place] [phone] documented as of this encounter Visit Diagnoses Not on filedocumented in this encounter Additional Health Concerns Assessment Noted Time A Body Mass Index follow-up plan has been documented for the patient 05/20/2025 1:20 PM EDT documented as of this encounter Care Teams Flat Cutter Relationship Specialty Start Date End Date Andra Cole MD [address] [place] [phone] PCP - General 01/26/21 documented as of this encounter
--- OUTSIDE RECORDS SUMMARY | 2025-06-30 09:36 | XMS_ITS | Encounter Summary ---
Author Organization Healthcare Address [address] [place] [address] Care Team Providers Care Loan Documents Closer Name Role Phone Andra Cole MD Primary Care Provider [phone] Encounter Details Date Type Department Care Team ([facility] st Contact Info) Description 05/25/2025 Orders Only [facility] Nephrology, Bone & Mineral Metabolism [address] [facility], [address] [place] [address] Savanna Villegas, PharmD [address] [place] [address] Social History Tobacco Use Types [...] Clinician Note - Savanna Villegas, PharmD - 05/25/2025 8:56 AM EDT Received PA request for Андрей. Discussed with Dr. Cortez, given patient without contraindication toRetacrit and has not trialed, will switch patient to Retacrit 10,000 units every 2 weeks at this time. Savanna Villegas, ChelleD, BCACP Clinical Pharmacist Ne[facility]rology[facility] [address] [place] [address] documented in this encounter Plan of Treatment Upcoming Encounters Date Type Department Care Team (Late st Contact Info) Description 09/02/2025 1:20 PM EST Office Visit [facility] [address] [place] [address] Huber Cortez MD [address] [place] [phone] documented as of this encounter Visit Diagnoses Not on filedocumented in this encounter Additional Health Concerns Assessment Noted Time A Body Mass Index follow-up plan has been documented for the patient 05/20/2025 1:20 PM EDT documented as of this encounter Care Teams Loan Documents Closer Relationship Specialty Start Date End Date Andra Cole MD [address] [place] [address] PCP - General 01/26/21 documented as of this encounter
--- OUTSIDE RECORDS SUMMARY | 2025-06-30 09:36 | XMS_ITS | Encounter Summary ---
Author Organization [facility] Address [address] [id number] Care Team Providers Care Sailing Instructor Name Role Phone Andra Cole MD Primary Care Provider [phone] Reason for Visit * Reason Comments Med Refill Encounter Details Date Type Department Care Team ([facility] st Contact Info) Description 06/17/2025 Refill [facility] Nephrology, Bone & Mineral Metabolism [address] [facility], [address] [place] [address] Huber Cortez MD [address] [place] [address] Social History Tobacco Use Types Packs/Day Years [...] Miscellaneous Notes * Telephone Encounter - Savanna Villegas PharmD - 06/17/2025 2:18 PM EDT Patient getting updated labs next week then will refill if appropriate documented in this encounter Plan of Treatment Upcoming Encounters Date Type Department Care Team (Late st Contact Info) Description 09/02/2025 1:20 PM EST Office Visit [facility] [address] [place] [address] Huber Cortez MD [address] [place] [phone] documented as of this encounter Visit Diagnoses Not on filedocumented in this encounter Additional Health Concerns Assessment Noted Time A Body Mass Index follow-up plan has been documented for the patient 05/20/2025 1:20 PM EDT documented as of this encounter Care Teams Sailing Instructor Relationship Specialty Start Date End Date Andra Cole MD [address] [place] [phone] PCP - General 01/26/21 documented as of this encounter
[2025-06-30 09:53] LABS: Hematocrit 30.1 % (42.0-52.0); Hemoglobin 9.9 g/dL (14.1-18.0); Immature Granulocytes % 0.3 %; Mean Corpuscular HGB Conc 32.9 g/dL (31.8-35.4); Mean Corpuscular Hemoglobin 30.6 pg (27.0-31.2); Mean Corpuscular Volume 92.9 fl (80-94); Nucleated Red Blood Cells % 0 %; Platelet Count 176 K/mm3 (142-424); Red Blood Count 3.24 M/mm3 (4.60-6.20); Red Cell Distribution Width-SD 53.2 fL; White Blood Count 9.2 K/mm3 (4.8-10.8)
== END 2025-06-30 23:59 | disposition home or self-care (01) ==
PROVIDERS: PCP Family Medicine; Visit Provider Student in an Organized Health Care Education/Training Program
DX: N18.4 Chronic kidney disease, stage 4 (severe) (principal); D63.1 Anemia in chronic kidney disease
CPT/HCPCS: 36415; 85025

== ENCOUNTER 2025-08-01 14:40 | Outpatient (CLI) | payer MEDICARE, SELFPAY ==
[2025-08-01 18:47] LABS: Coronavirus 19, PCR Not Detected (NotDetected); Influenza A, PCR Not Detected (NotDetected); Influenza B, PCR Not Detected (NotDetected)
== END 2025-08-01 23:59 ==
LOC: LAB.DROPOF 08-02 08:44
PROVIDERS: PCP Family Medicine; Visit Provider Nurse Practitioner
DX: J06.9 Acute upper respiratory infection, unspecified (principal)
CPT/HCPCS: 87636

== ENCOUNTER 2025-08-09 11:17 | Observation (INO) | payer MEDICARE, SELFPAY ==
[2025-08-09] VITALS (8 sets, daily range): BP systolic 106–132; BP diastolic 43–74; PULSE 59–82; RESP 15–18; TEMP 36.4–36.8; O2SAT 92–99; BMI 18.8; BMI 19.6
--- OUTSIDE RECORDS SUMMARY | 2025-08-09 11:29 | XMS_ITS | Encounter Summary ---
Author Organization [facility] Address [address] [id number] Care Team Providers Care Manufacturing Engineer Supervisor Name Role Phone Andra Cole MD Primary Care Provider [phone] Reason for Visit * Reason Comments Med Refill Encounter Details Date Type Department Care Team ([facility] st Contact Info) Description 06/17/2025 Refill Professional [facility] Nephrology, Bone & Mineral Metabolism [address] [facility], [address] [place] [address] Huber Cortez MD [address] [place] [address] Social History Tobacco Use Types Packs/Day Years Used Date Smoking Tobacco: Every Day Cigarettes 1 72.2 Started: 06/15/1955 Smokeless Tobacco: Never Alcohol Use [...] Description 09/02/2025 1:20 PM EST Office Visit [facility] [address] [place] [address] Huber Cortez MD [address] [place] [phone] documented as of this encounter Visit Diagnoses Not on filedocumented in this encounter Additional Health Concerns Assessment Noted Time A Body Mass Index follow-up plan has been documented for the patient 05/20/2025 1:20 PM EDT documented as of this encounter Care Teams Manufacturing Engineer Supervisor Relationship Specialty Start Date End Date Andra Cole MD [address] [place] [phone] PCP - General 01/26/21 documented as of this encounter
--- OUTSIDE RECORDS SUMMARY | 2025-08-09 11:29 | XMS_ITS | Clinical Summary ---
Author Organization [facility] Address [address] [place] [address] Care Team Providers Care Glass Blower Name Role Phone Andra Cole MD Primary Care Provider [phone] Allergies Active Allergy Reactions Criticality Noted Date [...] MG 24 hr capsule 04/12/2020 Activ e Syringe/Needle, Disp, (B-D ECLIPSE SYRINGE) 27G X 1/2 1 ML misc Use as directed with Retacrit. 6 each 1 05/25/2025 Active Epoetin Brooks-epbx (Retacrit) 19998 UNIT/ML injection Inject 1 mL under the skin every 14 days. 2 mL 2 07/01/2025 Active Active Problems Problem Noted Date Diagnosed Date 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 kidney disease 025 CKD stage 3b, GFR 30-44 ml/min 05/20/2025 Other hyperlipidemia 05/20/2025 Chronic kidney disease-mineral and bone disorder (CKD-MBD) 05/20/2025 Gout due to renal impairment 05/20/2025 Encounters Date Type Department Care Team Description 06/17/2025 Refill [facility] Nephrology, Bone & Mineral Metabolism [address], [address] [place] [address] Huber Cortez MD 06/14/2025 Orders Only [facility] Nephrology, Bone & Mineral Metabolism [address], [address] [place] [phone] Bakari, Savanna L, PharmD 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 kidney disease (Primary Dx) 05/26/2025 Telephone [facility] Nephrology, Bone & Mineral Metabolism [address], [address] [place] [address] Bakari, Savanna L, PharmD 05/25/2025 Orders Only [facility] Nephrology, Bone & Mineral Metabolism [address], [address] [place] [phone] Bakari, Savanna L, PharmD 05/20/2025 12:20 PM EDT Office Visit [facility] [address] [place] [address] Huber Cortez MD 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 kidney disease (Primary Dx); CKD stage 3b, GFR 30-44 ml/min ([facility]); Other hyperlipidemia; Chronic kidney disease-mineral and bone disorder (CKD-MBD); Gout due to renal impairment, unspecified chronicity, unspecified site 05/20/2025 Travel from Last 3 Months Social History Tobacco [...] Visit [facility] [address] [place] [address] Huber Cortez MD [address] [place] [phone] Health Maintenance Due Date Last Done Comments [facility]-Depression Screening 1938 [facility]-Medicare Annual Wellness (AWV) 1938 [facility]-Infant/Child/Adol SDOH Screenings 1938 [facility]- SDOH Screenings 1956 [facility]-Adult SDOH Screenings 1956 [facility]-Zoster Vaccines (1 of 2) 1988 [facility]-Pneumococcal Vaccine: 50+ Years (2 of 2 - PPSV23, PCV20, or PCV21) 07/30/2012 06/04/2012 [facility]-RSV Vaccine: 60+ Years or (1 - 1-dose 75+ series) 2013 [id number] Vaccine (3 - season) 2025 08/16/2021, 01/12/2021 [...] complete this topic Insurance MEDICARE Care Teams Glass Blower Relationship Specialty Start Date End Date Andra Cole MD [address] [phone] PCP - General 01/26/21
--- OUTSIDE RECORDS SUMMARY | 2025-08-09 11:29 | XMS_ITS | Clinical Summary ---
Author Organization [facility] Address [address] [facility] [place] [address] Phone Care Team Providers Care Diesel Locomotive Engineer Name Role Phone Gilberto Reynolds MD Primary Care Provider [phone] Allergies No known active allergies Medications amLODIPine-atorv [...] (11/01/2021): Added automatically from request for surgery [id number] Gastroesophageal reflux disease 11/01/2021 Overview (11/01/2021): Added automatically from request for surgery [id number] Personal history of colonic polyps 11/01/2021 Overview (11/01/2021): Added automatically from request for surgery [id number] History of duodenal ulcer 11/01/2021 Overview (11/01/2021): Added automatically from request for surgery [id number] Carotid stenosis, asymptomatic, bilateral 2018 Abdominal aortic [...] PATCH ANGIOPLASTY.; Surgeon: Alejandro Madden MD; Location: [facility] MAIN OR; Service: Vascular Medical devices from this surgery are in the Medical Devices section. UPPER GASTROINTESTINAL ENDOSCOPY 09/11/2015 N/A ESOPHAGOGASTRODUODENOSCOPY with biopsy and danica test ; Surgeon: Quintin Gordillo MD; Location: [facility] ENDOSCOPY; Service: Endoscopy COLONOSCOPY 12/13/2021 N/A [...] CAD (coronary artery disease) ca bg,2 stents [place] (myocardial infarction) (HCC) COPD (chronic obstructive pulmonary [...] Date Smoking Tobacco: Every Day Cigarettes 1 71.9 Started: 09/11/1955 Passive Smoke Exposure: Current Smokeless [...] AM EDT Appointment [facility] [address] [place] [address] [address] [place] [phone] Hayde Gomez APRN [address] [place] [address] DR LOPEZ [address] [place] [phone] 01/25/2026 9:00 AM EDT Appointment [facility] [address] [place] [address] [place] [phone] Hayde Gomez APRN [address] [place] [place] [address] DR LOPEZ [address] [place] [address] [phone] 01/25/2026 10:00 AM EDT Appointment [facility] [address] [place] [address] [place] [phone] Hayde Gomez APRN [address] [place] [address] DR LOPEZ [address] [place] [phone] 01/25/2026 11:00 AM EDT Office Visit [facility] [address] [place] [address] [place] [phone] Hayde Gomez APRN [address] [place] [place] [address] [address] LOPEZ [address] [place] [address] [phone] Health Maintenance Due Date Last Done Comments Wellness Exam Medicare 1943 Zoster (1 of 2) 1988 Pneumococcal Vaccine 50+ (2 of 2 - PPSV23, PCV20, or PCV21) 07/30/2012 06/04/2012 RSV or 60+ (1 - 1-dose 75+ series) 2013 COVID-19 Vaccine ( - 2024- season) 2025 Influenza Vaccine (#1) 2025 , 07/08/2023, 05/18/2021, Additional history exists DTaP/TDaP/Td (2 - Td or Tdap) 02/07/2028 02/06/2018 Hepatitis B Vaccine Aged Out No longe r eligible based on patient's age to complete this topic Meningococcal B Vaccine Aged Out No l onger eligible based on patient's age to complete this topic Medical Devices Implanted Type Area Agile Test Lead Device Identifier Shelf Expiration Date Model / Serial / Lot Patch Vascular Biologic Xenosure 0.8cm X 8cm - [id number] Implanted:Qty: 1 on 02/02/2014 by Alejandro Madden MD at [facility] Right: Carotid LEMAITRE VASCULAR 03/14/2016 0.8P8 / / [id number] Insurance HU[employer]NA MEDICARE PPO MR HUMANA MEDICARE PPO MR Advance Directives For more information, please contact: [phone] * Full Code (Latest Code Status on File) Date Activated Date Inactivated Comments 09/11/2015 1:21 AM 09/12/2015 10:26 PM * Full Code Date Activated Date Inactivated Comments 09/11/2015 1:08 AM 09/11/2015 1:21 AM Care Teams Diesel Locomotive Engineer Relationship Specialty Start Date End Date Gilberto Reynolds MD [address] [place] [address] [address] [place] [phone] PCP - General Family Medicine 01/21/14
--- OUTSIDE RECORDS SUMMARY | 2025-08-09 11:29 | XMS_ITS | Encounter Summary ---
Author Organization Healthcare Address [address] [place] [address] Care Team Providers Care Custom Ski Maker Name Role Phone Andra Cole MD Primary Care Provider [phone] Encounter Details Date Type Department Care Team ([facility] st Contact Info) Description 06/14/2025 Orders Only [facility] [address], [address] [place] [address] Savanna Villegas, PharmD [address] [place] [address] 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 [...] planning to get labs on 06/30 at [facility] with cardiology appointment. Orders havebeen faxed. Savanna Villegas PharmD, BCACP Clinical Pharmacist [facility] [address] [place] [address] documented in this encounter Plan of Treatment Upcoming Encounters Date Type Department Care Team (Late st Contact Info) Description 09/02/2025 1:20 PM EST Office Visit [facility] [address] [place] [id number] Huber Cortez MD [address] [place] [address] Scheduled Orders Name Type Priority [...] documented as of this encounter Care Teams Custom Ski Maker Relationship Specialty Start Date End Date Andra Cole MD [address] [place], [place] [id number] PCP - General 01/26/21 documented as of this encounter
--- NOTE | 2025-08-09 11:33 | ED_ITS ---
<Statement entered by Danielle Chester MD - 08/13/25 08:56> I was consulted by the MARGARITO, and we discussed the complexity of the problems being addressed. I approved the treatment and management plan for this patient's care in the emergency department, thus performing a substantive portion of the medical decision making. Danielle Chester MD, TOO, FACEP Discharge Plan Disposition Patient Disposition: Admitted Condition: Fair Clinical Impressions Clinical Impression: Diarrhea, Colitis, Acute kidney injury Discharge ED Provider: Danielle Chester General Adult HPI General Chief complaint: Weakness Stated complaint: low bp, diarrhea Time Seen by Provider: 08/09/25 11:24 Mode of Arrival: Ambulatory Source of Information: Patient and Relative Description of Symptoms (Recalled from ER Triage Doc. by RN): pt had diarrhea last week and has had some increased weakness. denies any pain. Takes shots every two weeks to raise his blood counts. was recently on an antibiotic for a URI. sent form dr reynolds History of Present Illness HPI narrative: 84-year-old male presents to the emergency department at the request of his PCPs office with concern for low blood pressure, apparently patient's blood pressure was found to be low in the patient's PCP office, patient has had 1 week of diarrhea that initially improved, was seen by PCP for this started on azithromycin for what sounds like URI he endorses cough and congestion for over a week, diarrhea once again initially improved but occurred this morning. Also endorses generalized weakness, denies any fever chills chest pain shortness of breath, no nausea no vomiting no constipation no diarrhea, did have some abdominal pain that has waxed and waned, no abdominal pain currently, no urinary symptomatology, no hematuria no hematochezia, no hematemesis, no hemoptysis, patient is a former smoker denies any alcohol or drug use, other past medical history is consistent with aortic stenosis, CKD, vitamin B12 deficiency, COPD, ascending keratosis, CAD status post multiple stent placement, history of CABG, carotid artery stenosis, hypertension, hyperlipidemia, PAD. Initial triage vitals are unremarkable, no hypotension on triage vitals. Please note that above description of symptoms, in this electronic medical record under categorization of recalled from ER triage doctor by RN are reflective of an initial nursing assessment, however, is not reflective of my full history and physical exam that was personally taken and clarified. Consequentially, this preceding description of symptoms, which may include the patient's categorized chief complaint in the EMR, do not reflect my personal clinical impression, and the ultimate description of history of present illness and patient stated complaints should be deferred to this section of the note. Unless stated otherwise or congruent with this section of the note, additional signs, symptoms, or incongruence should be interpreted as inaccurate with my clinical impression. Onset (ago): day(s) Related Data Home Medications ?Medication ?Instructions ?Recorded ?Confirmed epoetin jacques-epbx 10,000 unit/mL 10,000 unit SQ DIR ECTED 05/31/25 08/09/25 injection solution (Retacrit) syringe with needle 1 mL 27 x 1/2 #25 ea 05/31/25 (BD Tuberculin Syringe) albuterol sulfate 2.5 mg/3 mL 2.5 mg inhalation QIDP P RN 08/09/25 08/09/25 (0.083 %) solution for nebulization Shortness Of Breat h allopurinol 300 mg tablet 300 mg PO DAILY 08/09/25 carvedilol 6.25 mg tablet (Coreg) 6.25 mg PO BID 08/0908/09/25 clopidogrel 75 mg tablet (Plavix) 75 mg PO DAILY 08/0908/09/25 cyanocobalamin (vitamin B-12) 1,000 mcg PO DAILY 08/0908/09/25 1,000 mcg capsule dextromethorphan-guaifenesin ER 60 1 tab PO BID 08/09/25 mg-1,200 mg tab,extend release,12hr ferrous sulfate 325 mg (65 mg 325 mg PO BID 08/09/25 1 10/09/24 iron) tablet (FeroSul) hyoscyamine sulfate 0.125 mg tablet 0.125 mg PO QIDP P RN diarrhea or 08/09/25 08/09/25 abdominal cramping tamsulosin 0.4 mg capsule 0.4 mg PO DAILY 08/09/25 Previous Rx's ?Medication ?Instructions ?Recorded amlodipine 10 mg-atorvastatin 20 1 tab PO DAILY #90 ta bs 02/08/25 mg tablet (Caduet) olmesartan 20 mg tablet (Benicar) 20 mg PO DAILY #90 t abs 05/03/25 Allergies Allergy/AdvReac Type Severity Reaction Status Date / Time No Known Allergies Allergy Verified 08/09/25 10:08 [facility] Disclaimer: The information contained in this section may have been updated after the patient was seen, as this information can be updated by other users. 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 Hx of heart artery stent Hx of heart bypass surgery History of open heart surgery Family History Other Coronary artery disease Hypertension Social History (Updated 08/09/25 @ 10:08 by Katie Khan MA) Smoking Status: Current every day smoker tobacco type: cigarettes packs per day: 1 alcohol intake: current alcohol intake frequency: holidays/special occasions only substance use type: denies use current occupational status: retired Travel in the last 8 weeks?: None Have you lived/traveled outside US in past 30 days?: No Contact w/someone who lives/traveled outside US past 30 days?: No Exposure to someone with infectious disease in past 14 days?: No Do you have a fever (greater than 100.4 F or 38 C)?: No Have you tested positive for COVID-19?: No Exposed to someone with COVID-19 in past 14 days?: No Do you have a sore throat?: No Do you have a cough?: No Do you have any weakness?: No Do you have any diarrhea?: No Are you experiencing any unusual bleeding?: No Do you have any muscle aches/pain?: No Do you have any abdominal pain?: No Are you experiencing loss of taste or smell?: No Other Medical History Have you received the Flu Vaccine for this season: Yes Have you received the Pneumonia Vaccine: Yes ROS Obtained: Yes All systems reviewed & no additional complaints except as documented Physical Exam General General appearance: alert and in no apparent distress Head Head exam: atraumatic and normocephalic Eye Eye exam: Present PERRL and EOMI ENT ENT exam: Present mucous membranes moist Neck Neck exam: Present normal inspection Chest Chest inspection: Present normal inspection and symmetric chest wall rise Respiratory Respiratory exam: Present normal lung sounds bilaterally; Absent respiratory distress, wheezes or stridor Cardiovascular Cardiovascular exam: Present regular rate and normal rhythm Abdominal Exam Abdominal exam: Present soft; Absent tenderness, guarding, rebound or rigidity Extremities Exam Extremities exam: Present normal inspection Neurological Exam Neurological exam: Present alert and oriented X3 Psychiatric Psychiatric exam: Present normal affect Skin Skin exam: Present warm, dry and other (Numerous areas of what looks like incisional/shave biopsies in the patient's face, with some active actinic keratosis versus basal cell carcinomas that are known to the patient on 8) Medical Decision Making Medical Records Medical records reviewed: Yes I reviewed the patient's medical records. Screening: Per USPSTF and CDC recommendations, given the prevalence of disease in our region, it is our hospital?s policy to screen for HIV and viral Hepatitis for all patients aged 18 and over and those with ongoing risk factors. Shemar Inquiry Pt receiving controlled substance: No Vital Signs: 08/09/25 11:27 08/09/25 12:00 08/09/25 12:30 Temperature 97.9 F Temperature Source Oral Pulse Rate 59 L 60 Pulse Rate [Right] 62 Respiratory Rate 18 16 15 Blood Pressure 113/46 L 118/74 Blood Pressure [Right Arm] 111/46 L Blood Pressure Mean [Right Arm] 67 Blood Pressure Source [Right Arm] Blood Pressure Position [Right Arm] 02 Sat by Pulse Oximetry 99 94 L 97 Oxygen Delivery Method Room Air Room Air 08/09/25 13:00 08/09/25 14:20 08/09/25 14:20 Temperature 98.2 F Temperature Source Oral Pulse Rate 64 Pulse Rate [Right] 73 Respiratory Rate 16 Blood Pressure 106/50 L Blood Pressure [Right Arm] 132/48 L Blood Pressure Mean [Right Arm] 76 Blood Pressure Source [Right Arm] Automatic Cuff Blood Pressure Position [Right Arm] Supine 02 Sat by Pulse Oximetry 95 94 L Oxygen Delivery Method Room Air Room Air Room Air 08/09/25 14:47 Temperature 97.9 F Temperature Source Pulse Rate 63 Pulse Rate [Right] Respiratory Rate 16 Blood Pressure 106/50 L Blood Pressure [Right Arm] Blood Pressure Mean [Right Arm] Blood Pressure Source [Right Arm] Blood Pressure Position [Right Arm] 02 Sat by Pulse Oximetry Oxygen Delivery Method Lab Data Lab results reviewed: Yes I reviewed the patient's lab results. Lab Results 08/09/25 11:30: WBC 13.0 H, RBC 3.54 L, Hgb 10.7 L, Hct 32.4 L, MCV 91.5, MCH 30.2, MCHC 33.0, RDW 16.1, Plt Count 179, MPV 12.5 H, Neut % (Auto) 67.8, Lymph % (Auto) 21.9, Holt % (Auto) 8.1, Eos % (Auto) 1.1, Baso % (Auto) 0.2, Neut # (Auto) 8.8 H, Lymph # (Auto) 2.9, Holt # (Auto) 1.1 H, Eos # (Auto) 0.1, Baso # (Auto) 0.0, Sodium 132 L, Potassium 4.0, Chloride 106, Carbon Dioxide 20 L, Anion Gap 10.0, BUN 37 H, Creatinine 2.20 H, Estimated Creat Clear 17, Estimated GFR 29 L, Est GFR ( Amer) 35 L, Glucose 111 H, Lactate 1.1, Calcium 8.3 L , Magnesium 2.4 H, Total Bilirubin 0.5, AST 17, ALT 14, Alkaline Phosphatase 69, Total Protein 6.2 L, Albumin 3.4 L, Globulin 2.8, Albumin/Globulin Ratio 1.2, HCV Ab AARTI w/Rflx PCR Qn Negative, HIV Ag/Ab Combo Qual Negative 08/09/25 13:30: Urine Color Yellow, Urine Appearance Clear, Urine pH 6.0, Ur Specific [place] 1.010, Urine Protein Trace, Urine Glucose (UA) Negative, Urine Ketones Negative, Urine Blood Negative, Urine Nitrate Negative, Urine Bilirubin Negative, Urine Urobilinogen 0.2, Ur Leukocyte Esterase Negative, Urine RBC None, Urine WBC Occasional, Ur Squamous Epith Cells Occasional, Urine Bacteria Trace 08/09/25 11:30 08/09/25 11:30 Orders (Tests/Meds): ED MEDICATIONS Generic Name Dose Route Start Last Admin Trade Name Freq PRN Reason Stop Dose Admin Lactated Ringer's 1,000 mls @ 50 mls/hr 08/09/25 14:00 08/09/25 15:06 Lactated Ringer's 1000 Ml Bag IV 09/08/25 13:59 50 mls/hr .Q20H NORA Administration Discontinued Medications Generic Name Dose Route Start Last Admin Trade Name Freq PRN Reason Stop Dose Admin Lactated Ringer's 1,000 mls @ 999 mls/hr 08/09/25 12:02 08/09/25 13:24 Lactated Ringer's 1000 Ml Bag IV 08/09/25 13:02 Infused .Q1H1M ONE Infusion ORDERS Category Date Time Status CT abdomen pelvis wo con Stat Cat Scan 08/09/25 11:54 Completed XR chest portable Stat Exams 08/09/25 14:09 Taken Complete Blood Count Auto Diff Stat Lab 08/09/25 11:30 Completed Comprehensive Metabolic Panel Stat Lab 08/09/25 11:30 Completed Diarrhea 23 Panel, PCR Stat Lab 08/09/25 11:41 Ordered HIV Combo Stat Lab 08/09/25 11:30 Completed Hepatitis C Ab Qual. W/ RFX Stat Lab 08/09/25 11:30 Completed Lactic Acid Stat Lab 08/09/25 11:30 Completed Magnesium Stat Lab 08/09/25 11:30 Completed Urinalysis and Microscopic Stat Lab 08/09/25 13:30 Completed Medical Decision Narrative: 84-year-old male presents to the emergency department with 1 week of generalized weakness diarrhea, concern for low blood pressure at PCPs office, differential diagnose include but not limited to gastroenteritis, gastritis, colitis, ileitis, cardiac arrhythmia, electrolyte disturbance, failure to thrive, acute kidney injury among others. I discussed this patient's case with the attending physician Will obtain basic of laboratory studies, diarrhea panel, magnesium level UA, lactic acid level, EKG. will obtain CT abdomen pelvis with contrast. CBC is noted for leukocytosis at 13, hemoglobin hematocrit are 10.7 and 32.4, which is actually improved outside of the patient's baseline anemia. Mild hyponatremia 132, BUN elevation at 37, creatinine elevation 2.2, some degree of acute on chronic kidney injury minimal hyper magnesium at 2.4, minimal hypocalcemia at 8.3, will give 1 L LR IV, because of patient's acute kidney injury will obtain noncontrasted study of CT abdomen pelvis. I reviewed the patient's CT head and pelvis without contrast on the corresponding radiologic report, nonobstructing bilateral renal stones, no obstructing stones or no hydronephrosis, long-segment colonic wall thickening of up in the proximal colon to sigmoid colon, this is most consistent with infectious or inflammatory colitis acute diverticulitis of the sigmoid colon felt to be less likely infrarenal abdominal aortic aneurysm. I discussed this patient's case with Dr. Still who is on-call for Dr. Reynolds service at approximately 1:50 PM, he is in agreement with the current admission plan/treatment plan for acute kidney injury that is worsened in the setting of a diarrheal illness, he would like me to touch base with Dr. Reynolds himself. This will call Dr. Reynolds for confirmation and to closed-loop communication. I discussed need for admission with the patient family bedside patient is in agreement with the current admission plan/treatment plan, patient would like to be full code. I discussed the patient's case with Dr. Reynolds at approximately 2:05 PM, he is in agreement with the current admission plan/treatment plan, he would like me to obtain chest x-ray on admission. Thus will obtain chest x-ray. Urinalysis is unremarkable Critical Care Critical Care Time Critical Care Time: No
[2025-08-09 11:46] LABS: Hematocrit 32.4 % (42.0-52.0); Hemoglobin 10.7 g/dL (14.1-18.0); Immature Granulocytes % 0.9 %; Mean Corpuscular HGB Conc 33.0 g/dL (31.8-35.4); Mean Corpuscular Hemoglobin 30.2 pg (27.0-31.2); Mean Corpuscular Volume 91.5 fl (80-94); Nucleated Red Blood Cells % 0 %; Platelet Count 179 K/mm3 (142-424); Red Blood Count 3.54 M/mm3 (4.60-6.20); Red Cell Distribution Width-SD 54.1 fL; White Blood Count 13.0 K/mm3 (4.8-10.8)
--- NOTE | 2025-08-09 11:50 | PC.NURSE ---
Pt does not need to urinate @ this time. Aware of need for urine and stool sample.
--- NOTE | 2025-08-09 11:54 | ECG_ITS ---
APPROVED REPORT Exam: Resting ECG HR:53 bpm ECG Measurements Heart Rate 53 AXES PA 134 P 60 QRSd 105 QRS 43 QT 420 T 35 QTc 402 Conclusion SINUS BRADYCARDIA BORDERLINE ECG UNCONFIRMED REPORT Electronically signed by : Lobito Chester, 08/09/2025 15:22:27
--- NOTE | 2025-08-09 11:54 | CT_ITS ---
FINAL REPORT TECHNIQUE: Thin section axial images were obtained from the lung bases to the pubic symphysis without IV contrast. Coronal reconstruction images were obtained from the axial data. Exam was performed using dose reduction technique. CLINICAL HISTORY: ABD pain, diarrhea COMPARISON: None. FINDINGS: There are no obstructing renal or ureteral stones. There is no hydronephrosis or perinephric stranding. There are renovascular calcifications and there are bilateral nonobstructing renal stones. Gallstones are noted and a partially contracted gallbladder. The remaining unenhanced solid abdominal organs are unremarkable. There are a few fluid-filled small bowel loops in the left upper quadrant. There is no evidence of small bowel obstruction. The appendix is not visualized. There are no secondary signs of appendicitis. There is wall thickening of the proximal colon with mild surrounding abnormal attenuation most consistent with colitis. There is wall thickening of the sigmoid colon where there are diverticula. This is favored to be related to colitis. Acute diverticulitis felt to be less likely. The prostate is enlarged. An infrarenal abdominal aortic aneurysm measures 38 mm. No lymphadenopathy. Trace free fluid is noted. No acute osseous abnormality is identified. IMPRESSION: 1. Nonobstructing bilateral renal stones. No obstructing stones and no hydronephrosis. 2. Long segment colonic wall thickening involving both the proximal colon and sigmoid colon. This is most consistent with infectious or inflammatory colitis. Acute diverticulitis of the sigmoid colon felt to be less likely. 3. Infrarenal abdominal aortic aneurysm. Authenticated and ERN
[2025-08-09 11:57] LABS: Alanine Aminotransferase 14 U/L (12-78); Albumin Level 3.4 g/dl (3.5-5.0); Albumin/Globulin Ratio 1.2 (1.1-1.8); Alkaline Phosphatase 69 U/L (38-126); Anion Gap 10.0 mEq/L (5-15); Aspartate Amino Transferase 17 U/L (17-59); Bilirubin,Total 0.5 mg/dl (0.2-1.3); Blood Urea Nitrogen 37 mg/dl (9-20); Calcium 8.3 mg/dl (8.4-10.2); Carbon Dioxide 20 mmol/L (22.0-30.0); Chloride 106 mmol/L (98-107); Creatinine Clearance Estimated 17 mL/min (50-200); Creatinine,Serum 2.20 mg/dl (0.66-1.25); Estimated Glomerular Filt Rate 29 ml/min (>60); GFR (African American) 35 ML/MIN (>60); Globulin 2.8 g/dL (1.3-3.2); Glucose 111 mg/dl (74-100); Magnesium 2.4 mg/dl (1.6-2.3); Potassium 4.0 mmoL/L (3.5-5.1); Sodium 132 mmol/L (136-145); Total Protein,Serum 6.2 g/dl (6.3-8.2)
[2025-08-09] MEDS: LACTATED RINGERS 1000ML 1,000 ML 999 ML IV (12:19)
--- NOTE | 2025-08-09 12:27 | PC.NURSE ---
Pt assisted w/ ambulation to the bathroom, still unable to void @ this time.
[2025-08-09 12:59] LABS: Hepatitis C Ab Qual. W/ RFX NEGATIVE (Negative)
[2025-08-09 13:34] LABS: Microscopic, Urine URINE MICROSCOPIC (MICROSCOPIC)
--- NOTE | 2025-08-09 13:56 | PC.NURSE ---
Called [facility] office per LIANET Aguilar. left message for him to call the ER.
--- NOTE | 2025-08-09 14:07 | PC.NURSE ---
Alvino MARTINI speaking with about possible admission.
--- NOTE | 2025-08-09 14:09 | XR_ITS ---
FINAL REPORT CLINICAL HISTORY: Cough, congestion COMPARISON: None FINDINGS: A portable view of the chest was obtained. The patient has undergone a prior midline sternotomy. Cardiac and mediastinal silhouettes are within normal limits. There are bilateral interstitial opacities, that may represent mild edema or interstitial pneumonia. There is no pleural effusion or pneumothorax. IMPRESSION: Bilateral interstitial opacities, mild edema or interstitial pneumonia. Reviewed, Interpreted and Dictated by Heydi Car MD Transcribed by Rosio Lujan Authenticated and [facility]
--- NOTE | 2025-08-09 14:13 | PC.NURSE ---
HS notified of the need for a bed to admit.
[2025-08-09 14:32] LABS: Bilirubin,Urine Negative (Negative); Color,Urine YELLOW (Yellow); Glucose,Urine (UA) Negative (Negative); Ketones,Urine Negative (Negative); Leukocyte Esterase,Urine Negative (Negative); PH,Urine 6.0 (5.0-8.5); Protein,Urine TRACE (Negative); Specific Gravity, Urine 1.010 (1.005-1.030); Urobilinogen,Urine 0.2 EU/dl (0.2)
--- NOTE | 2025-08-09 14:37 | PC.NURSE ---
report called to Viry on 2nd floor
--- NOTE | 2025-08-09 14:42 | HMH.PHAINT1 ---
Pharmacy Intervention Comments: MEDICATION RECONCILIATION COMPLETED ON PATIENT USING EXTERNAL FILL HISTORY FROM PHARMACY. -FRANKLIN PARNELL, SENTHILD
--- NOTE | 2025-08-09 14:48 | PC.NURSE ---
Patient arrived by wheelchair @[id number]
--- NOTE | 2025-08-09 14:56 | EXP.HP ---
History of Present Illness *Admission Date: 08/09/25 *Reason for visit:: Hypotension; diarrhea *History of present illness: Patient is an 84-year-old male with a history of aortic valve sclerosis, chronic [place] kidney disease, ASCVD, anemia, COPD, and valvular heart disease who presented to the office of [facility] and was seen by Dr. Reynolds. He was found to be hypotensive with a blood pressure initially of 54/30. He was noted to have had diarrhea stools. He was receiving erythropoietin [place] every infusion every 2 weeks. He also describes some congestion. He had been treated previously the week before for respiratory infection and he felt that this was better. With exam he felt was felt to be frail in appearance. He was alert and oriented x 3. He was felt to be septic and sent to [facility] emergency room with probable dehydration, anemia, chronic kidney disease. With evaluation in the emergency room patient noted generalized weakness. He denied any fever, chest pain, shortness of breath, nausea, vomiting, and no urinary symptoms. He had experienced some abdominal pain. Laboratory data revealed a white blood cell count of 13,000 with a hemoglobin of 10.7 and hematocrit of 32.4. Platelet count was 179,000. BUN was 37 and creatinine 2.2. Urinalysis was negative. Patient did receive a liter of IV fluids in the emergency room. CT of the abdomen/pelvis showed nonobstructing bilateral renal strones with no obstructing stones and no hydronephrosis; long segment colonic wall thickening involving both the proximal colon and sigmoid colon; this was most consistent with infectious or inflammatory colitis; acute diverticulitis of the sigmoid colon felt to be less likely; infrarenal abdominal aortic aneurysm. Chest x-ray results are pending. . At the time of this exam after admission patient states he feels better. Daughter is at bedside. He denies any chest pain, shortness of breath, and states his abdominal discomfort has resolved. His daughter feels like he looks better after receiving IV fluids. He describes soft stool at 1:30 AM and at 6:30 AM this morning. He has had no further stools. He is not nauseated. He usually eats satisfactory at home. His daughter assist in the history and states he completed a course of Zithromax and was using his albuterol inhaler for an upper respiratory infection which was started last week. Patient feels that this is all resolved. [facility] Disclaimer: The information contained in this section may have been updated after the patient was seen, as this information can be updated by other users. 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 Dyspnea Surgical History History of surgical removal of squamous cell carcinoma of skin of [place] region Hx of heart artery stent Hx of heart bypass surgery History of open heart surgery Family History Other Coronary artery disease Hypertension Social History (Updated 08/09/25 @ 15:57 by Danna Maki RN) Smoking Status: Current every day smoker tobacco type: cigarettes packs per day: 1 alcohol intake: never substance use type: denies use current occupational status: retired Travel in the last 8 weeks?: None Have you lived/traveled outside [place] in past 30 days?: No Contact w/someone who lives/traveled outside US past 30 days?: No Exposure to someone with infectious disease in past 14 days?: No Do you have a fever (greater than 100.4 F or 38 C)?: No Have you tested positive for COVID-19?: No Exposed to someone with COVID-19 in past 14 days?: No Do you have a sore throat?: No Do you have a cough?: No Do you have any weakness?: No Are you experiencing any nausea/vomitting?: No Do you have any diarrhea?: No Are you experiencing any unusual bleeding?: No Do you have any muscle aches/pain?: No Do you have any abdominal pain?: No Are you experiencing loss of taste or smell?: No Other Medical History Have you received the Flu Vaccine for this season: Yes Have you received the Pneumonia Vaccine: Yes Review of Systems Constitutional Constitutional: Denies fever(s), Denies frequent falls and Denies headache(s) Eyes Eyes: Denies change in vision ENT Ears, Nose, Mouth, and Throat: Denies headache(s), Denies nasal congestion and Denies sore throat *Cardiovascular Cardiovascular: Denies chest pain, Denies dyspnea and Denies leg edema *Respiratory Respiratory: Denies chest congestion, Reports cough (Minimal. Uses an inhaler on a regular basis.) and Denies dyspnea *Gastrointestinal Gastrointestinal: Reports abdominal pain (Discomfort within the left upper quadrant and is now resolved), Reports change in bowel habits and Denies diarrhea *Genitourinary Genitourinary: Denies difficulty urinating *Musculoskeletal Musculoskeletal: Denies abnormal gait, Denies muscle weakness and Denies myalgias *Neurologic Neurologic: Denies abnormal gait, Denies abnormal speech, Denies behavioral changes, Denies confusion, Denies frequent falls and Denies headache(s) Comments: Hard of hearing Psychiatric Psychiatric: Denies behavioral changes and Denies confusion Meds Home Medications and Allergies Home Medications ?Medication ?Instructions ?Recorded ?Confirmed ?Type amlodipine 10 mg-atorvastatin 20 1 tab PO DAILY #90 tabs 02/08/25 08/09/25 Rx mg tablet (Caduet) olmesartan 20 mg tablet (Benicar) 20 mg PO DAILY #90 tabs 05/03/25 08/09/25 Rx epoetin jacques-epbx 10,000 unit/mL 10,000 unit SQ DIRECTED 05/31/25 08/09/25 History injection solution (Retacrit) syringe with needle 1 mL 27 x 1/2 #25 ea 05/31/25 08/09/25 History (BD Tuberculin Syringe) albuterol sulfate 2.5 mg/3 mL 2.5 mg inhalation QIDP PRN 08/09/25 08/09/25 History (0.083 %) solution for nebulization Shortness Of Breath allopurinol 300 mg tablet 300 mg PO DAILY 08/09/25 08/09/25 History carvedilol 6.25 mg tablet (Coreg) 6.25 mg PO BID 08/09/25 08/09/25 History clopidogrel 75 mg tablet (Plavix) 75 mg PO DAILY 08/09/25 08/09/25 History cyanocobalamin (vitamin B-12) 1,000 mcg PO DAILY 08/09/25 08/09/25 History 1,000 mcg capsule dextromethorphan-guaifenesin ER 60 1 tab PO BID 08/09/25 08/09/25 History mg-1,200 mg tab,extend release,12hr ferrous sulfate 325 mg (65 mg 325 mg PO BID 08/09/25 08/09/25 History iron) tablet (FeroSul) hyoscyamine sulfate 0.125 mg tablet 0.125 mg PO QIDP PRN diarrhea or 08/09/25 08/09/25 History abdominal cramping tamsulosin 0.4 mg capsule 0.4 mg PO DAILY 08/09/25 08/09/25 History New Prescriptions to Start Prescriptions: Allergies Allergy/AdvReac Type Severity Reaction Status Date / Time No Known Allergies Allergy Verified 08/09/25 10:08 Exam Data for Last 24 hours Vital signs and Labs for Last 24 Hours: Temp Pulse Resp BP Pulse Ox O2 Del Method 97.9 F 63 16 106/50 L 95 Room Air 08/09/25 14:47 08/09/25 14:47 08/09/25 14:47 08/09/25 14:47 08/09/25 13:00 08/09/25 13:00 Laboratory Results - last 24 hr 08/09/25 11:30: WBC 13.0 H, RBC 3.54 L, Hgb 10.7 L, Hct 32.4 L, MCV 91.5, MCH 30.2, MCHC 33.0, RDW 16.1, Plt Count 179, MPV 12.5 H, Neut % (Auto) 67.8, Lymph % (Auto) 21.9, [place] % (Auto) 8.1, Eos % (Auto) 1.1, Baso % (Auto) 0.2, Neut # (Auto) 8.8 H, Lymph # (Auto) 2.9, [place] # (Auto) 1.1 H, Eos # (Auto) 0.1, Baso # (Auto) 0.0, Sodium 132 L, Potassium 4.0, Chloride 106, Carbon Dioxide 20 L, Anion Gap 10.0, BUN 37 H, Creatinine 2.20 H, Estimated Creat Clear 17, Estimated GFR 29 L, Est GFR ( Amer) 35 L, Glucose 111 H, Lactate 1.1, Calcium 8.3 L, Magnesium 2.4 H, Total Bilirubin 0.5, AST 17, ALT 14, Alkaline Phosphatase 69, Total Protein 6.2 L, Albumin 3.4 L, Globulin 2.8, Albumin/Globulin Ratio 1.2, HCV Ab AARTI w/Rflx PCR Qn Negative, HIV Ag/Ab Combo Qual Negative 08/09/25 13:30: Urine Color Yellow, Urine Appearance Clear, Urine pH 6.0, Ur Specific [place] 1.010, Urine Protein Trace, Urine Glucose (UA) Negative, Urine Ketones Negative, Urine Blood Negative, Urine Nitrate Negative, Urine Bilirubin Negative, Urine Urobilinogen 0.2, Ur Leukocyte Esterase Negative I & O for Last 24 hours: Intake & Output 08/07/25 08/08/25 08/09/25 08/10/25 11:59 11:59 11:59 11:59 Intake Total 1000 / 1000 Balance 1000 / 1000 Weight 113 lb Constitutional Constitutional: no acute distress Comments: Lying comfortably in the bed. Daughter is at bedside. *Routine HEENT Exam Head: Absent normocephalic (Outer ear with surgical changes) Eye: Present PERRL; Absent scleral injection ENT: Present mucous membranes dry and oropharynx clear; Absent dentition normal *Routine Neck Exam Neck: Present supple and carotid bruit (Probable radiating murmur); Absent lymphadenopathy or thyromegaly *Routine Respiratory Exam Respiratory: Present CTA bilaterally (Anteriorly and posteriorly) *Routine Cardiovascular Exam Cardiovascular: Present RRR and murmur *Routine Abdominal Exam Abdominal: Present soft and normoactive bowel sounds; Absent tenderness, distended or guarding *Routine Rectal Exam Rectal:: deferred *Routine Genitalia Exam Genitalia:: deferred *Routine Extremities Exam Extremities: Present pulses intact; Absent edema or calf tenderness *Routine Neurological Exam Neurological: Present alert and oriented X3 Assessment and Plan *Assessment and plan (1) Diarrhea: Status: Acute Category: Medical Code(s): R19.7 - Diarrhea, unspecified (2) Sepsis associated hypotension: Status: Acute Category: Medical Code(s): A41.9 - Sepsis, unspecified organism; I95.9 - Hypotension, unspecified (3) Dehydration: Status: Acute Category: Medical Code(s): E86.0 - Dehydration (4) Aortic valve sclerosis: Status: Acute Category: Medical Code(s): I35.8 - Other nonrheumatic aortic valve disorders (5) CKD (chronic kidney disease) stage 4, GFR 15-29 ml/min: Status: Acute Category: Medical Code(s): N18.4 - Chronic kidney disease, stage 4 (severe) (6) History of ASCVD: Status: Acute Category: Medical Code(s): Z86.79 - Personal history of other diseases of the circulatory system (7) Anemia: Status: Acute Category: Medical Code(s): D64.9 - Anemia, unspecified (8) Colitis: Status: Acute Category: Medical Code(s): K52.9 - Noninfective gastroenteritis and colitis, unspecified (9) Acute kidney injury: Status: Acute Category: Medical Code(s): N17.9 - Acute kidney failure, unspecified Plan IVF; monitor labs; regular meds not ordered at this time due to anemia and hypotension.
[2025-08-09 14:58] LABS: Squamous Epithelial Cell,Urine Occasional #/hpf (0-5); WBC,Urine Occasional #/hpf (0-3)
[2025-08-09 14:59] LABS: Bacteria,Urine Trace /lpf
[2025-08-09] MEDS: LACTATED RINGERS 1000ML 1,000 ML 50 ML IV (15:06)
--- NOTE | 2025-08-09 18:16 | PC.NURSE ---
pt resting in bed call light in reach, A/O x4
--- NOTE | 2025-08-10 03:52 | PC.NURSE ---
Pt. is alert and orientated x 4. Pt. is on room air. Pt. has been sleeping well this shift. Pt. denied any shortness of breath, chest pains, abdominal pain. Pt. states he is feeling much better now and hopes he gets to go home later today. Pt. is up to bathroom with standby assist. Personal items and call moses in reach. Bed in low and locked position. bed alarm on.
[2025-08-10 04:00] VITALS: BP 102/39; PULSE 74; RESP 16; TEMP 36.9; O2SAT 93; BMI 19.1
[2025-08-10 07:03] LABS: Adenovirus F 40/41, stool Not Detected (NotDetected); Cyclospora Cayetanesis Not Detected (NotDetected); Plesimonas Shigalloides, PCR Not Detected (NotDetected); Salmonella, PCR Not Detected (NotDetected); Shiga-like toxin E coli Not Detected (NotDetected); Shigella Enterovasive E coli Not Detected (NotDetected); Vibrio, PCR Not Detected (NotDetected); Yersinia Entercolitica, PCR Not Detected (NotDetected)
[2025-08-10 07:51] VITALS: BP 118/48; PULSE 82; RESP 16; TEMP 36.6; O2SAT 94
[2025-08-10 09:48] LABS: Hematocrit 31.3 % (42.0-52.0); Hemoglobin 10.2 g/dL (14.1-18.0); Immature Granulocytes % 1.1 %; Mean Corpuscular HGB Conc 32.6 g/dL (31.8-35.4); Mean Corpuscular Hemoglobin 29.9 pg (27.0-31.2); Mean Corpuscular Volume 91.8 fl (80-94); Nucleated Red Blood Cells % 0 %; Platelet Count 165 K/mm3 (142-424); Red Blood Count 3.41 M/mm3 (4.60-6.20); Red Cell Distribution Width-SD 54.1 fL; White Blood Count 11.4 K/mm3 (4.8-10.8)
[2025-08-10 09:53] LABS: Albumin Level 2.9 g/dl (3.5-5.0); Chloride 111 mmol/L (98-107); Potassium 3.7 mmoL/L (3.5-5.1); Sodium 140 mmol/L (136-145)
[2025-08-10 09:56] LABS: Alanine Aminotransferase 10 U/L (12-78); Albumin/Globulin Ratio 1.0 (1.1-1.8); Alkaline Phosphatase 64 U/L (38-126); Anion Gap 14.7 mEq/L (5-15); Aspartate Amino Transferase 18 U/L (17-59); Bilirubin,Total 0.5 mg/dl (0.2-1.3); Blood Urea Nitrogen 26 mg/dl (9-20); Carbon Dioxide 18 mmol/L (22.0-30.0); Creatinine Clearance Estimated 25 mL/min (50-200); Creatinine,Serum 1.50 mg/dl (0.66-1.25); Estimated Glomerular Filt Rate 44 ml/min (>60); GFR (African American) 54 ML/MIN (>60); Globulin 2.8 g/dL (1.3-3.2); Total Protein,Serum 5.7 g/dl (6.3-8.2)
[2025-08-10 09:57] LABS: Calcium 8.0 mg/dl (8.4-10.2); Glucose 85 mg/dl (74-100)
--- NOTE | 2025-08-10 10:06 | P.PN_ITS ---
Subjective *Date: 08/10/25 *Time: 10:06 Interval history: He is adamant about going home, but I do not have the stool PCR results yet. White blood cell count is still elevated at 11.4. Blood pressure has been stable. He has not received his usual blood pressure medications. Medical Exam Vital signs and Labs for Last 24 Hours: Vital Signs Temp Pulse Pulse Resp BP BP Pulse Ox 08/10/25 08:45 08/10/25 08:00 08/10/25 07:51 98 F 82 16 118/48 L 94 L 08/10/25 06:36 08/10/25 05:00 08/10/25 04:00 98.5 F 74 16 102/39 L 93 L 08/10/25 03:00 08/10/25 01:00 08/09/25 23:00 08/09/25 21:00 08/09/25 20:00 18 95 08/09/25 20:00 98.1 F 82 17 127/53 L 95 08/09/25 16:00 97.6 F 69 16 127/43 L 92 L 08/09/25 14:47 97.9 F 63 16 106/50 L 08/09/25 14:20 08/09/25 14:20 98.2 F 73 16 132/48 L 94 L 08/09/25 13:00 64 106/50 L 95 08/09/25 12:30 60 15 118/74 97 08/09/25 12:00 59 L 16 113/46 L 94 L 08/09/25 11:27 97.9 F 62 18 111/46 L 99 O2 Del Method 08/10/25 08:45 Room Air 08/10/25 08:00 Room Air 08/10/25 07:51 Room Air 08/10/25 06:36 Room Air 08/10/25 05:00 Room Air 08/10/25 04:00 Room Air 08/10/25 03:00 Room Air 08/10/25 01:00 Room Air 08/09/25 23:00 Room Air 08/09/25 21:00 Room Air 08/09/25 20:00 Room Air 08/09/25 20:00 Room Air 08/09/25 16:00 Room Air 08/09/25 14:47 08/09/25 14:20 Room Air 08/09/25 14:20 Room Air 08/09/25 13:00 Room Air 08/09/25 12:30 Room Air 08/09/25 12:00 Room Air 08/09/25 11:27 Intake and Output 08/09/25 08/10/25 08/10/25 19:59 03:59 11:59 Intake Total 1000 / 1240 240 / 1240 Output Total 200 / 200 0 / 200 0 / 200 Balance 800 / 1040 240 / 1040 0 / 1040 Intake: Intake, Oral Amount 240 / 240 Intake, Total IV Amount 1000 / 1000 Lactated Ringers 1000ML 1,000 1000 / 1000 ml @ 999 mls/hr IV .Q1H1M ONE Rx#:[id number] Output: Output, Urine Amount 200 / 200 0 / 200 0 / 200 Other: Number of Unmeasured Voids 1 1 1 Number of Bowel Movements 1 1 Weight 114 lb 6 oz 112 lb 6.4 oz Patient Weight 08/10/25 11:59 Weight 112 lb 6.4 oz Laboratory Results - last 24 hr 08/09/25 11:30: WBC 13.0 H, RBC 3.54 L, Hgb 10.7 L, Hct 32.4 L, MCV 91.5, MCH 30.2, MCHC 33.0, RDW 16.1, Plt Count 179, MPV 12.5 H, Neut % (Auto) 67.8, Lymph % (Auto) 21.9, [place] % (Auto) 8.1, Eos % (Auto) 1.1, Baso % (Auto) 0.2, Neut # (Auto) 8.8 H, Lymph # (Auto) 2.9, [place] # (Auto) 1.1 H, Eos # (Auto) 0.1, Baso # (Auto) 0.0, Sodium 132 L, Potassium 4.0, Chloride 106, Carbon Dioxide 20 L, Anion Gap 10.0, BUN 37 H, Creatinine 2.20 H, Estimated Creat Clear 17, Estimated GFR 29 L, Est GFR ( Amer) 35 L, Glucose 111 H, Lactate 1.1, Calcium 8.3 L , Magnesium 2.4 H, Total Bilirubin 0.5, AST 17, ALT 14, Alkaline Phosphatase 69, Total Protein 6.2 L, Albumin 3.4 L, Globulin 2.8, Albumin/Globulin Ratio 1.2, HCV Ab AARTI w/Rflx PCR Qn Negative, HIV Ag/Ab Combo Qual Negative 08/09/25 13:30: Urine Color Yellow, Urine Appearance Clear, Urine pH 6.0, Ur Specific [place] 1.010, Urine Protein Trace, Urine Glucose (UA) Negative, Urine Ketones Negative, Urine Blood Negative, Urine Nitrate Negative, Urine Bilirubin Negative, Urine Urobilinogen 0.2, Ur Leukocyte Esterase Negative, Urine RBC None, Urine WBC Occasional, Ur Squamous Epith Cells Occasional, Urine Bacteria Trace 08/10/25 09:38: WBC 11.4 H, RBC 3.41 L, Hgb 10.2 L, Hct 31.3 L, MCV 91.8, MCH 29.9, MCHC 32.6, RDW 16.2, Plt Count 165, MPV 11.5 H, Neut % (Auto) 71.3, Lymph % (Auto) 19.1, [place] % (Auto) 6.9, Eos % (Auto) 1.4, Baso % (Auto) 0.2, Neut # (Auto) 8.1 H, Lymph # (Auto) 2.2, [place] # (Auto) 0.8, Eos # (Auto) 0.2, Baso # (Auto) 0.0, Sodium 140, Potassium 3.7, Chloride 111 H, Carbon Dioxide 18 L, Anion Gap 14.7, BUN 26 H D, Creatinine 1.50 H D, Estimated Creat Clear 25, Estimated GFR 44 L, Est GFR ( Amer) 54 L D, Glucose 85 D, Calcium 8.0 L, Total Bilirubin 0.5, AST 18, ALT 10 L D, Alkaline Phosphatase 64, Total Protein 5.7 L, Albumin 2.9 L D, Globulin 2.8, Albumin/Globulin Ratio 1.0 L I & O for Labs for Last 24 Hours: Intake & Output 08/07/25 08/08/25 08/09/25 08/10/25 11:59 11:59 11:59 11:59 Intake Total 1240 / 1240 Output Total 200 / 200 Balance 1040 / 1040 Weight 113 lb 112 lb 6.4 oz Head: Absent normocephalic ENT: Present mucous membranes moist Neck: Present full ROM Respiratory: Present CTA bilaterally and rhonchi (some) Cardiac: Present Reg Rate and Rhythm GI: Present soft and hyperactive bowel sounds; Absent distention or tenderness Rectal (male): Present deferred (male): Present deferred Extremities: Absent edema Skin: Present scars (extensive facial surgical scars ) Comment:: Hx multiple skin cancers Neuro: Present alert and oriented x 3 Assessment and Plan *Assessment and plan (1) Colitis: Status: Acute Category: Medical Code(s): K52.9 - Noninfective gastroenteritis and colitis, unspecified (2) Diarrhea: Status: Acute Category: Medical Code(s): R19.7 - Diarrhea, unspecified (3) Dehydration: Status: Acute Category: Medical Code(s): E86.0 - Dehydration (4) Hypotension: Status: Acute Category: Medical Code(s): I95.9 - Hypotension, unspecified (5) Renal insufficiency: Status: Acute Category: Medical Code(s): N28.9 - Disorder of kidney and ureter, unspecified (6) History of ASCVD: Status: Acute Category: Medical Code(s): Z86.79 - Personal history of other diseases of the circulatory system (7) Solar aging of skin: Status: Acute Category: Medical Code(s): L57.8 - Other skin changes due to chronic exposure to nonionizing radiation (8) Skin cancer of face: Status: Acute Category: Medical Code(s): C44.300 - Unspecified malignant neoplasm of skin of unspecified part of face (9) Valvular heart disease: Status: Acute Category: Medical Code(s): I38 - Endocarditis, valve unspecified (10) History of CEA (carotid endarterectomy): Problem Comment: Bilateral Status: Acute Category: Surgical Code(s): Z98.890 - Other specified postprocedural states (11) History of coronary artery bypass graft: Problem Comment: 1995 Status: Chronic Category: Surgical Code(s): Z95.1 - Presence of aortocoronary bypass graft (12) Abdominal aortic aneurysm: Status: Chronic Qualifiers: Presence of rupture: without rupture Qualified Code(s): I71.4 - Abdominal aortic aneurysm, without rupture Category: Medical Code(s): I71.40 - Abdominal aortic aneurysm, without rupture, unspecified (13) Tobacco dependence syndrome: Status: Chronic Category: Medical Code(s): F17.200 - Nicotine dependence, unspecified, uncomplicated (14) Spinal stenosis: Status: Chronic Category: Medical Code(s): M48.00 - Spinal stenosis, site unspecified Plan Awaiting stool PCR.
[2025-08-10] MEDS: LACTATED RINGERS 1000ML 1,000 ML 50 ML IV (10:15)
[2025-08-10 11:11] LABS: Clostridium Difficile A/B, PCR Detected (NotDetected)
--- NOTE | 2025-08-15 09:12 | EXP.DC.SUM ---
General Admission date:: 08/09/25 Discharge date: 08/10/25 HPI HPI HPI: Patient is an 84-year-old male with a history of aortic valve sclerosis, chronic Killman kidney disease, ASCVD, anemia, COPD, and valvular heart disease who presented to the office of [facility] and was seen by Dr. Reynolds. He was found to be hypotensive with a blood pressure initially of 54/30. He was noted to have had diarrhea stools. He was receiving erythropoietin [place] every infusion every 2 weeks. He also describes some congestion. He had been treated previously the week before for respiratory infection and he felt that this was better. With exam he felt was felt to be frail in appearance. He was alert and oriented x 3. He was felt to be septic and sent to [facility] emergency room with probable dehydration, anemia, chronic kidney disease. With evaluation in the emergency room patient noted generalized weakness. He denied any fever, chest pain, shortness of breath, nausea, vomiting, and no urinary symptoms. He had experienced some abdominal pain. Laboratory data revealed a white blood cell count of 13,000 with a hemoglobin of 10.7 and hematocrit of 32.4. Platelet count was 179,000. BUN was 37 and creatinine 2.2. Urinalysis was negative. Patient did receive a liter of IV fluids in the emergency room. CT of the abdomen/pelvis showed nonobstructing bilateral renal strones with no obstructing stones and no hydronephrosis; long segment colonic wall thickening involving both the proximal colon and sigmoid colon; this was most consistent with infectious or inflammatory colitis; acute diverticulitis of the sigmoid colon felt to be less likely; infrarenal abdominal aortic aneurysm. Chest x-ray results are pending. . At the time of this exam after admission patient states he feels better. Daughter is at bedside. He denies any chest pain, shortness of breath, and states his abdominal discomfort has resolved. His daughter feels like he looks better after receiving IV fluids. He describes soft stool at 1:30 AM and at 6:30 AM this morning. He has had no further stools. He is not nauseated. He usually eats satisfactory at home. His daughter assist in the history and states he completed a course of Zithromax and was using his albuterol inhaler for an upper respiratory infection which was started last week. Patient feels that this is all resolved. Hospital Course Hospital Course Hospital Course: The patient was started on IV fluids and his regular medicines were held due to anemia and hypotension. By 08/10/2025 he was feeling a little bit better. His stool was positive for C. difficile and he was given a prescription for vancomycin 125 mg 4 times daily. His blood pressure stabilized and he was adamant about going home. He was discharged home and will follow-up in the office. Exam Data for Last 24 hours Vital signs and Labs for Last 24 Hours: Temp Pulse Resp BP Pulse Ox O2 Del Method 98 F 82 16 118/48 L 94 L Room Air 08/10/25 07:51 08/10/25 07:51 08/10/25 07:51 08/10/25 07:51 08/10/25 07:51 08/10/25 08:45 Narrative: Constitutional Constitutional: no acute distress Comments: Lying comfortably in the bed. Daughter is at bedside. *Routine HEENT Exam Head: Absent normocephalic (Outer ear with surgical changes) Eye: Present PERRL; Absent scleral injection ENT: Present mucous membranes dry and oropharynx clear; Absent dentition normal *Routine Neck Exam Neck: Present supple and carotid bruit (Probable radiating murmur); Absent lymphadenopathy or thyromegaly *Routine Respiratory Exam Respiratory: Present CTA bilaterally (Anteriorly and posteriorly) *Routine Cardiovascular Exam Cardiovascular: Present RRR and murmur *Routine Abdominal Exam Abdominal: Present soft and normoactive bowel sounds; Absent tenderness, distended or guarding *Routine Rectal Exam Rectal:: deferred *Routine Genitalia Exam Genitalia:: deferred *Routine Extremities Exam Extremities: Present pulses intact; Absent edema or calf tenderness *Routine Neurological Exam Neurological: Present alert and oriented X3 DS: Diagnosis Discharge Diagnosis (1) Colitis: Status: Acute Code(s): K52.9 - Noninfective gastroenteritis and colitis, unspecified (2) Diarrhea: Status: Acute Code(s): R19.7 - Diarrhea, unspecified (3) Dehydration: Status: Acute Code(s): E86.0 - Dehydration (4) Hypotension: Status: Resolved Code(s): I95.9 - Hypotension, unspecified (5) Renal insufficiency: Status: Acute Code(s): N28.9 - Disorder of kidney and ureter, unspecified (6) History of ASCVD: Status: Inactive Code(s): Z86.79 - Personal history of other diseases of the circulatory system (7) Solar aging of skin: Status: Acute Code(s): L57.8 - Other skin changes due to chronic exposure to nonionizing radiation (8) Skin cancer of face: Status: Inactive Code(s): C44.300 - Unspecified malignant neoplasm of skin of unspecified part of face (9) Valvular heart disease: Status: Acute Code(s): I38 - Endocarditis, valve unspecified (10) History of CEA (carotid endarterectomy): Status: Acute Code(s): Z98.890 - Other specified postprocedural states Problem details: Bilateral (11) History of coronary artery bypass graft: Status: Chronic Code(s): Z95.1 - Presence of aortocoronary bypass graft Problem details: 1994 (12) Abdominal aortic aneurysm: Status: Chronic Code(s): I71.40 - Abdominal aortic aneurysm, without rupture, unspecified Qualifiers: Presence of rupture: without rupture Qualified Code(s): I71.4 - Abdominal aortic aneurysm, without rupture (13) Tobacco dependence syndrome: Status: Chronic Code(s): F17.200 - Nicotine dependence, unspecified, uncomplicated (14) Spinal stenosis: Status: Chronic Code(s): M48.00 - Spinal stenosis, site unspecified Meds Home Medications and Allergies Home Medications ?Medication ?Instructions ?Recorded ?Confirmed ?Type olmesartan 20 mg tablet (Benicar) 20 mg PO DAILY #90 tabs 05/03/25 08/09/25 Rx epoetin jacques-epbx 10,000 unit/mL 10,000 unit SQ DIRECTED 05/31/25 08/09/25 History injection solution (Retacrit) syringe with needle 1 mL 27 x 1/2 #25 ea 05/31/25 08/09/25 History (BD Tuberculin Syringe) albuterol sulfate 2.5 mg/3 mL 2.5 mg inhalation QIDP PRN 08/09/25 08/09/25 History (0.083 %) solution for nebulization Shortness Of Breath allopurinol 300 mg tablet 300 mg PO DAILY 08/09/25 08/09/25 History carvedilol 6.25 mg tablet (Coreg) 6.25 mg PO BID 08/09/25 08/09/25 History clopidogrel 75 mg tablet (Plavix) 75 mg PO DAILY 08/09/25 08/09/25 History cyanocobalamin (vitamin B-12) 1,000 mcg PO DAILY 08/09/25 08/09/25 History 1,000 mcg capsule dextromethorphan-guaifenesin ER 60 1 tab PO BID 08/09/25 08/09/25 History mg-1,200 mg tab,extend release,12hr ferrous sulfate 325 mg (65 mg 325 mg PO BID 08/09/25 08/09/25 History iron) tablet (FeroSul) hyoscyamine sulfate 0.125 mg tablet 0.125 mg PO QIDP PRN diarrhea or 08/09/25 08/09/25 History abdominal cramping tamsulosin 0.4 mg capsule 0.4 mg PO DAILY 08/09/25 08/09/25 History vancomycin 125 mg capsule 125 mg PO QID #40 caps 08/10/25 Rx New Prescriptions to Start Prescriptions: vancomycin Srini Reynolds Allergies Allergy/AdvReac Type Severity Reaction Status Date / Time No Known Allergies Allergy Verified 08/09/25 10:08 Discharge Plan Disposition Patient Disposition: Home, Self-Care Condition: Fair Follow up Plan Follow up with: Srini Reynolds MD [Staff Physician, Medical] - 08/16/25 9:40 am Prescriptions/Medication Reconciliation: New vancomycin 125 mg capsule 125 mg PO QID Qty: 40 0RF Continued (DME) BD Tuberculin Syringe 1 mL 27 x 1/2 syringe See Rx Instructions .ROUTE .MEDSUPPLY Qty: 25 Patient Comments: USE DIRECTED WITH RETRACRIT Rx Instructions: As directed Retacrit 10,000 unit/mL solution 10,000 unit SQ DIRECTED Patient Comments: INJECT ONE (1) ML SUBCUTANEOUSLY EVERY 14 DAYS Rx Instructions: INJECT EVERY 14 DAYS olmesartan [Benicar] 20 mg tablet 20 mg PO DAILY Qty: 90 3RF carvedilol [Coreg] 6.25 mg tablet 6.25 mg PO BID albuterol sulfate 2.5 mg /3 mL (0.083 %) solution for nebulization 2.5 mg inhalation QIDP PRN (Reason: Shortness Of Breath) clopidogrel [Plavix] 75 mg tablet 75 mg PO DAILY tamsulosin 0.4 mg capsule 0.4 mg PO DAILY hyoscyamine sulfate 0.125 mg tablet 0.125 mg PO QIDP PRN (Reason: diarrhea or abdominal cramping) ferrous sulfate [FeroSul] 325 mg (65 mg iron) tablet 325 mg PO BID dextromethorphan-guaifenesin 60-1,200 mg tablet extended release 12 hr 1 tab PO BID allopurinol 300 mg tablet 300 mg PO DAILY cyanocobalamin (vitamin B-12) 1,000 mcg capsule 1,000 mcg PO DAILY Discontinued amlodipine-atorvastatin [Caduet] 10-20 mg tablet 1 tab PO DAILY Qty: 90 1RF Problem Reconciliation Problems Reviewed?: Yes Patient Discharge Instructions ACTIVITY: Ambulate as tolerated DIET: advance to your usual diet Patient Instructions: DI for Sepsis in Adults, DI for Colitis, DI for Acute Kidney Injury Print Language: Polish Providers Primary Care Provider: Rodolfo RENDON Admit Provider: Srini Reynolds Attending Provider: Srini Reynolds
--- NOTE | 2025-08-15 10:50 | SW/DCPLANNER ---
Spoke with patient on the phone. Patient stated that he is doing well. patient stated that he was able to tow picker his new medicine. Patient stated that he is aware of his upcoming appointment. patient stated that he has no concerns or questions at this time. Lynda Contreras
== END 2025-08-10 13:26 | disposition home or self-care (01) ==
LOC: ER 14:05 → 2ND 14:18
PROVIDERS: Physician Assistant; Admitting Provider Family Medicine; Emergency Provider Student in an Organized Health Care Education/Training Program; PCP Family Medicine; Visit Provider Family Medicine
DX: A41.9 Sepsis, unspecified organism (principal); K52.9 Noninfective gastroenteritis and colitis, unspecified; E86.0 Dehydration; I35.8 Other nonrheumatic aortic valve disorders; N18.4 Chronic kidney disease, stage 4 (severe); Z86.79 Personal history of other diseases of the circulatory system; D64.9 Anemia, unspecified; N17.9 Acute kidney failure, unspecified; N28.9 Disorder of kidney and ureter, unspecified; L57.8 Other skin changes due to chronic exposure to nonionizing radiation; C44.300 Unspecified malignant neoplasm of skin of unspecified part of face; I38 Endocarditis, valve unspecified; Z98.890 Other specified postprocedural states; Z95.1 Presence of aortocoronary bypass graft; M48.00 Spinal stenosis, site unspecified; I25.10 Atherosclerotic heart disease of native coronary artery without angina pectoris; J43.9 Emphysema, unspecified; I25.2 Old myocardial infarction; I73.9 Peripheral vascular disease, unspecified; Z95.5 Presence of coronary angioplasty implant and graft; Z98.84 Bariatric surgery status; Z82.49 Family history of ischemic heart disease and other diseases of the circulatory system; F17.210 Nicotine dependence, cigarettes, uncomplicated; Z79.899 Other long term (current) drug therapy; Z79.01 Long term (current) use of anticoagulants; I71.40 Abdominal aortic aneurysm, without rupture, unspecified; R00.0 Tachycardia, unspecified; N20.0 Calculus of kidney; K57.32 Diverticulitis of large intestine without perforation or abscess without bleeding
CPT/HCPCS: 36415; 71045; 74176; 80053; 81001; 83605; 83735; 85025; 86803; 87389; 87507; 93005; 99285; G0378; J7120

== ENCOUNTER 2025-08-30 10:02 | Outpatient (CLI) | payer MEDICARE, SELFPAY ==
[2025-08-30 10:29] LABS: Hematocrit 35.6 % (42.0-52.0); Hemoglobin 11.4 g/dL (14.1-18.0); Immature Granulocytes % 0.5 %; Mean Corpuscular HGB Conc 32.0 g/dL (31.8-35.4); Mean Corpuscular Hemoglobin 30.2 pg (27.0-31.2); Mean Corpuscular Volume 94.4 fl (80-94); Nucleated Red Blood Cells % 0 %; Platelet Count 188 K/mm3 (142-424); Red Blood Count 3.77 M/mm3 (4.60-6.20); Red Cell Distribution Width-SD 57.7 fL; White Blood Count 8.8 K/mm3 (4.8-10.8)
--- OUTSIDE RECORDS SUMMARY | 2025-08-30 10:34 | XMS_ITS | Encounter Summary ---
Author Organization [facility] Address [address] [place] [address] Care Team Providers Care Well Flow Operator Name Role Phone Andra Cole MD Primary Care Provider [phone] Encounter Details Date Type Department Care Team ([facility] st Contact Info) Description 08/10/2025 Telephone [facility] [address], [address] [place] [address] Savanna Villegas, PharmD [address] [place] [address] Social History Tobacco Use Types [...] Telephone Encounter - Savanna Villegas, PharmD - 08/10/2025 1:54 PM EST Spoke with patient's daughter, Arlen, over the phone regarding updated labs. She reports MrDaja Frymanis currently hospitalized at [facility] after having low BP at cardiology appointment. Discussed with Dr. Crotez who will plan to get updated H&H at visit with patient in August. Chelle LouisD, BCACP Clinical Pharmacist [facility] [address] [place] [address] documented in this encounter Plan of Treatment Upcoming Encounters Date Type Department Care Team (Late st Contact Info) Description 09/02/2025 1:20 PM EST Office Visit [facility] [address] [place] [address] Huber Cortez MD [address] [place] [phone] documented as of this encounter Visit Diagnoses Not on filedocumented in this encounter Additional Health Concerns Assessment Noted Time A Body Mass Index follow-up plan has been documented for the patient 05/20/2025 1:20 PM EDT documented as of this encounter Care Teams Well Flow Operator Relationship Specialty Start Date End Date Andra Cole MD [facility] [place] [address] PCP - General 01/26/21 documented as of this encounter
--- OUTSIDE RECORDS SUMMARY | 2025-08-30 10:34 | XMS_ITS | Clinical Summary ---
Author Organization [facility] Address [address] [place] [address] Care Team Providers Care Ginner Name Role Phone Andra Cole MD Primary Care Provider [phone] Allergies Active Allergy Reactions Criticality Noted Date [...] each 1 05/25/2025 Active Epoetin Brooks-epbx (Retacrit) 89385 UNIT/ML injection Inject 1 mL under the skin every 14 days. 2 mL 2 07/01/2025 Active Active Problems Problem Noted Date Diagnosed Date 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 kidney disease 025 CKD stage 3b, GFR 30-44 ml/min 05/20/2025 Other hyperlipidemia 05/20/2025 Chronic kidney disease-mineral and bone disorder (CKD-MBD) 05/20/2025 Gout due to renal impairment 05/20/2025 Encounters Date Type Department Care Team Description 08/10/2025 Telephone [facility] Nephrology, Bone & Mineral Metabolism [address], [address] [place] [phone] Savanna Villegas, PharmD 06/17/2025 Refill [facility] Nephrology, Bone & Mineral Metabolism [address] [place] [phone] Huber Cortez MD 06/14/2025 Orders Only [facility] Nephrology, Bone & Mineral Metabolism [address] [place] [phone] Savanna Villegas, PharmD 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 kidney disease (Primary Dx) from Last 3 Months Immunizations Immunization Administration Dates Next Due Influenza, High-dose, Split Virus, Trivalent, Injectable, preservative free 06/25/2024,06/08/2020,07/09/2019,2017,06/04/2017 Influenza, Unspecified 06/15/2015,06/29/2013 Influenza, high-dose, quadrivalent 07/08/2023, Influenza, seasonal, injecta ble, preservative free 06/04/2012 Pneumococcal Conjugate PCV 13 06/04/2012 Tdap 02/06/2018 Social History Tobacco Use Types Packs/Day Years [...] Description 09/02/2025 1:20 PM EST Office Visit [facility] [address] [place] [address] Huber Cortez MD [address] [place] [address] Health Maintenance Due Date Last Done Comments [facility]-Depression Screening 1938 [facility]-Medicare Annual Wellness (AWV) 1938 [facility]-Infant/Child/Adol SDOH Screenings 1938 [facility]- SDOH Screenings 1956 [facility]-Adult SDOH Screenings 1956 [facility]-Zoster Vaccines (1 of 2) 1988 [facility]-Pneumococcal Vaccine: 50+ Years (2 of 2 - PPSV23, PCV20, or PCV21) 07/30/2012 06/04/2012 [facility]-RSV Vaccine: 60+ Years or (1 - 1-dose 75+ series) 2013 [facility]-JWDFC-35 Vaccine (3 - season) 2025 08/16/2021, 01/12/2021 [facility]-Influenza Vaccine (#1) 05/16/202506/25, 07/08/2023, 05/18/2021, Additional history exists [facility]-DTaP,Tdap,and Td Vaccines (2 - Td or Tdap) 02/07/2028 02/06/2018 HPV Vaccines (No Doses Required) Completed [facility]-HIB Vaccines Aged Out No longer e [...] this topic Insurance [employer] MEDICARE Care Teams Ginner Relationship Specialty Start Date End Date Andra Cole MD [facility] [place] [id number] PCP - General 01/26/21
--- OUTSIDE RECORDS SUMMARY | 2025-08-30 10:34 | XMS_ITS | Encounter Summary ---
Author Organization [facility] Address [address] [place] [id number] Care Team Providers Care Net Fisher Name Role Phone Andra Cole MD Primary Care Provider [phone] Reason for Visit * Reason Comments Med Refill Encounter Details Date Type Department Care Team ([facility] st Contact Info) Description 06/17/2025 Refill [facility] Nephrology, Bone & Mineral Metabolism [address], [address] [place] [address] Huber Cortez MD [address] [place] [address] Social History Tobacco Use Types [...] Description 09/02/2025 1:20 PM EST Office Visit [facility] [address] [place] [address] Huber Cortez MD [address] [place] [phone] documented as of this encounter Visit Diagnoses Not on filedocumented in this encounter Additional Health Concerns Assessment Noted Time A Body Mass Index follow-up plan has been documented for the patient 05/20/2025 1:20 PM EDT documented as of this encounter Care Teams Net Fisher Relationship Specialty Start Date End Date Andra Cole MD [address] [place] [id number] PCP - General 01/26/21 documented as of this encounter
--- OUTSIDE RECORDS SUMMARY | 2025-08-30 10:34 | XMS_ITS | Clinical Summary ---
Author Organization [facility] Address [address] [facility] [place] [address] Phone Care Team Providers Care Advertiser Name Role Phone Gilberto Reynolds MD Primary Care Provider [phone] Allergies No known active allergies Medications amLODIPine-atorv [...] (11/01/2021): Added automatically from request for surgery [id number] Gastroesophageal reflux disease 11/01/2021 Overview (11/01/2021): Added automatically from request for surgery [id number] Personal history of colonic polyps 11/01/2021 Overview (11/01/2021): Added automatically from request for surgery [id number] History of duodenal ulcer 11/01/2021 Overview (11/01/2021): Added automatically from request for surgery [id number] Carotid stenosis, asymptomatic, bilateral 2018 Abdominal aortic [...] PATCH ANGIOPLASTY.; Surgeon: Alejandro Madden MD; Location: [facility] OR; Service: Vascular Medical devices from this surgery are in the Medical Devices section. UPPER GASTROINTESTINAL ENDOSCOPY 09/11/2015 N/A ESOPHAGOGASTRODUODENOSCOPY with biopsy and danica test ; Surgeon: Quintin Gordillo MD; Location: [facility]; Service: Endoscopy COLONOSCOPY 12/13/2021 N/A [...] CAD (coronary artery disease) ca bg,2 stents [facility] (myocardial infarction) (HCC) COPD (chronic obstructive pulmonary [...] Tobacco: Every Day Cigarettes 1 72 Started: 09/11/1955 Passive Smoke Exposure: Current Smokeless [...] AM EDT Appointment [facility] [address] [place] [address] [address] [place] [phone] Hayde Gomez APRN [address] [place] [address] [address] LOPEZ [address] [place] [phone] 01/25/2026 9:00 AM EDT Appointment [facility] [address] [place] [address] [place] [phone] Hayde Gomez APRN [address] [place] [address] DR LPOEZ [address] [place] [phone] 01/25/2026 10:00 AM EDT Appointment [facility] [address] [place] [address] [place] [phone] Hayde Gomez APRN [address] [place] [address] DR LOPEZ [address] [place] [address] 01/25/2026 11:00 AM EDT Office Visit [facility] [address] [facility] [address] [place] [phone] Hayde Gomez APRN [address] [place] [address] [address] [place] [address] Health Maintenance Due Date Last Done Comments [...] this topic Medical Devices Implanted Type Area Grease Maker Head Device Identifier Shelf Expiration Date Model / Serial / Lot Patch Vascular Biologic Xenosure 0.8cm X 8cm - [id number] Implanted:Qty: 1 on 02/02/2014 by Alejandro Madden MD at [facility] Right: Carotid LEMAITRE VASCULAR 03/14/2016 0.8P8 / / [id number] Insurance HU[employer]NA MEDICARE PPO MR HU[employer] MEDICARE PPO MR Advance Directives For more information, please contact: [phone] * Full Code (Latest Code Status on File) Date Activated Date Inactivated Comments 09/11/2015 1:21 AM 09/12/2015 10:26 PM * Full Code Date Activated Date Inactivated Comments 09/11/2015 1:08 AM 09/11/2015 1:21 AM Care Teams Advertiser Relationship Specialty Start Date End Date Gilberto Reynolds MD [address] [place] [address] [address] [place] [address] PCP - General Family Medicine 01/21/14
[2025-08-30 12:18] LABS: Albumin Level 3.6 g/dl (3.5-5.0); Anion Gap 9.9 mEq/L (5-15); Blood Urea Nitrogen 20 mg/dl (9-20); Calcium 8.6 mg/dl (8.4-10.2); Carbon Dioxide 30 mmol/L (22.0-30.0); Chloride 103 mmol/L (98-107); Creatinine,Serum 1.60 mg/dl (0.66-1.25); Estimated Glomerular Filt Rate 41 ml/min (>60); GFR (African American) 50 ML/MIN (>60); Glucose 103 mg/dl (74-100); Iron 64 ug/dL (49-181); Phosphorous 3.5 mg/dl (2.5-4.5); Potassium 4.9 mmoL/L (3.5-5.1); Sodium 138 mmol/L (136-145)
[2025-08-30 12:27] LABS: Total Iron Binding Capacity 208 ug/dL (261-462)
[2025-08-30 12:55] LABS: Ferritin 588 ng/ml (17.9-464)
[2025-08-31 08:49] LABS: Transferrin 163 mg/dL (149-313)
== END 2025-08-30 23:59 | disposition home or self-care (01) ==
LOC: LAB 10:04
PROVIDERS: PCP Family Medicine; Visit Provider Student in an Organized Health Care Education/Training Program
DX: N18.4 Chronic kidney disease, stage 4 (severe) (principal); D63.1 Anemia in chronic kidney disease
CPT/HCPCS: 36415; 80069; 82610; 82728; 83540; 83550; 84466; 85025